=== PATIENT | male | born 1940 | race Caucasian/White ===

== ENCOUNTER 2018-10-30 12:57 | Observation (INO) | payer OTHER ==
[2018-10-30] MEDS ORDERED: ONDANSETRON 4 MG/2 ML VIAL ONE (13:43)
[2018-10-30] MEDS ORDERED: FENTANYL CITR 100 MCG/2 ML ONE (13:43)
[2018-10-30 13:57] LABS: Protime INR 1.07
[2018-10-30 13:58] LABS: Absolute Lymphocytes (CBC) 2.9 K/uL (0.7-4.9); Absolute Monocytes 0.9 K/uL (0.1-1.3); Absolute Neutrophil 6.1 K/uL (1.8-8.0); Basophils % 0.8 % (0-1.3); Eosinophils % 4.4 % (0-4.4); Hematocrit 48.3 % (39.6-49.0); Lymphocytes % 27.4 % (15.3-44.8); MCH 31.6 pg (27.0-35.0); RBC Red Blood Cell Count 5.55 M/uL (4.33-5.43)
[2018-10-30 14:02] LABS: Potassium 3.3 mmol/L (3.5-5.1)
--- NOTE | 2018-10-30 14:12 | RAD REPORT ---
EXAM DESCRIPTION: CT - Head C Spine Cap Wo Con - 10/30/2018 1:54 pm CLINICAL HISTORY: Trauma, head and neck injury. Chest, abdomen and pelvis pain. fall COMPARISON: HEAD BRAIN W O CONTRAST dated 07/18/2009; RP EXAM COMPLETE dated 05/18/2015 TECHNIQUE: CT head without contrast. CT cervical spine without contrast with coronal and sagittal reformatted images. CT chest, abdomen and pelvis without contrast with coronal and sagittal reformatted images of the spi ne. All CT scans are performed using dose optimization technique as appropriate and may include automated exposure control or mA/KV adjustment according to patient size. FINDINGS: CT HEAD WITHOUT CONTRAST: No intracranial hemorrhage, hydrocephalus or extra-axial fluid collection. Mild generalized brain atr ophy. No areas of brain edema or midline shift. The paranasal sinuses and mastoids are essentially clear. The calvarium is intact. CT CERVICAL SPINE WITHOUT CONTRAST: No fracture or subluxation. Mild lower cervical degenerative changes. The prevertebral soft tissues a re normal in thickness. CT CHEST, ABDOMEN, PELVIS WITHOUT CONTRAST: NOTE: Lack of contrast is a significant limitation in the assessment of trauma related findings. Spec ifically, solid organ, vascular and bowel evaluation is significantly limited. The lungs are clear.Evidence of old right lateral rib fractures which are well-healed. Right clavicul ar hardware also seen. No pneumothorax or pericardial/pleural fluid. 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 No evidence of intra-abdominal visceral injury, free fluid or free air is seen within the above detai led limitations. 10 mm lesion emanates from the cortex of the right kidney anteriorly, incompletely a ssessed due to lack of IV contrast but favored to be benign. Nonemergent follow-up renal sonography c ould be obtained for further characterization if clinically indicated. Appendectomy clips seen. Postsurgical clips are also present in the pelvis. Sigmoid diverticulosis wi thout diverticulitis. Small fat containing left inguinal hernia. Nondisplaced fracture posterior right twelfth rib noted. Nondisplaced fracture right lateral L1 trans verse process also seen. IMPRESSION: Nondisplaced fracture right L1 transverse process and posterior right twelfth rib. Elsew here, no acute trauma related abnormality seen.
[2018-10-30] MEDS ORDERED: MEPERIDINE HCL 25 MG/0.5 ML ONE ×2 (14:41→15:49)
--- NOTE | 2018-10-30 15:35 | ER ---
Nurse's Notes [facility] Name: Jose C Hernandez Age: 78 yrs Sex: Male : 1940 Arrival Date: 10/30/2018 Time: 12:58 Bed 17 Private MD: Andrea Awan Diagnosis: Other slipping, tripping and stumbling and falls;Fracture of one rib, right side;L1 transverse process fracture Presentation: 10/30 13:04 Presenting complaint: Patient states: i fell like 30 mins ago, landed on a corner of an ice chest, and hurt my R flank area, denies hitting head and LOC;. Transition of care: patient was not received from another setting of care. Onset of symptoms was October 30, 2018. Risk Assessment: Do you want to hurt yourself or someone else? Patient reports no desire to harm self or others. Initial Sepsis Screen: Does the patient meet any 2 criteria? No. Patient's initial sepsis screen is negative. Does the patient have a suspected source of infection? No. Patient's initial sepsis screen is negative. Care prior to arrival: None. 13:04 Method Of Arrival: Ambulatory 13:04 Acuity: [place] 3 13:07 Mechanism of Injury: Fall. Trauma event details: Injury occurred in the county of [facility], Injury occurred: at home. Injury occurred: October 30, 2018 Injury occurred at: 13:07. Triage Assessment: 13:11 General: Appears in no apparent distress. uncomfortable, Behavior is cooperative, hj appropriate for age, agitated. Pain: Complains of pain in R flank. Trauma Activation: Not Applicable Physician: ED Physician; Name: ; Notified At: ; Arrived At: Physician: General Surgeon; Name: ; Notified At: ; Arrived At: Physician: Radiology; Name: ; Notified At: ; Arrived At: Physician: Respiratory; Name: ; Notified At: ; Arrived At: Physician: Lab; Name: ; Notified At: ; Arrived At: Historical: - Allergies: 13:15 PENICILLINS (cardiac arrest ); aa5 13:15 Morphine (cardiac arrest ); aa5 - Home Meds: 13:09 metoprolol tartrate 50 mg Oral tab 1 tab 2 times per day [Active]; amlodipine 5 mg tab hj 1 tab once daily [Active]; chlorthalidone 25 mg Oral tab 1 tab once daily [Active]; venlafaxine 225 mg oral tr24 1 tab once daily [Active]; - PMHx: 13:06 Hypertension; Depression; hj 13:15 75% Kidney failure; aa5 - PSHx: 13:06 prostate; Appendectomy; hj - Immunization history:: Adult Immunizations up to date. - Social history:: Smoking status: Patient/guardian denies using tobacco, Patient/guardian denies using alcohol. - Ebola Screening: : Patient negative for fever greater than or equal to 101.5 degrees Fahrenheit, and additional compatible Ebola Virus Disease symptoms Patient denies exposure to infectious person Patient denies travel to an Ebola-affected area in the 21 days before illness onset. Screenin:05 Abuse screen: Denies threats or abuse. Denies injuries from another. Nutritional hj screening: No deficits noted. Tuberculosis screening: No symptoms or risk factors identified. Fall Risk None identified. Assessment: 13:10 General: Appears uncomfortable, Behavior is calm, cooperative. Pain: Complains of pain aa5 in right mid back and right low back Pain does not radiate. Pain currently is 10 out of 10 on a pain scale. Quality of pain is described as sharp, shooting, tender, Pain began post fall Is continuous, Aggravated by increased activity, repositioning. Neuro: Level of Consciousness is awake, alert, obeys commands, Oriented to person, place, time, situation. Cardiovascular: Heart tones S1 S2 present Rhythm is regular. Respiratory: Airway is patent Respiratory effort is even, unlabored, Respiratory pattern is regular, symmetrical, Breath sounds are clear bilaterally. GI: No signs and/or symptoms were reported involving the gastrointestinal system. : No signs and/or symptoms were reported regarding the genitourinary system. EENT: No signs and/or symptoms were reported regarding the EENT system. Derm: Skin is pink, warm \T\ dry. abrasion and redness noted to right mid-back. Musculoskeletal: Range of motion: intact in all extremities. 14:40 Reassessment: Patient is alert, oriented x 3, equal unlabored respirations, skin aa5 warm/dry/pink. Patient states feeling better. 14:40 Pain: Pain currently is 5 out of 10 on a pain scale. aa5 15:19 Reassessment: Dr. White at bedside discussing plan of care. jl7 15:43 Reassessment: Patient and/or family updated on plan of care and expected duration. Pain aa5 level reassessed. Patient is alert, oriented x 3, equal unlabored respirations, skin warm/dry/pink. Pain: Pain currently is 8 out of 10 on a pain scale. 16:30 Reassessment: Patient and/or family updated on plan of care and expected duration. Pain aa5 level reassessed. Patient is alert, oriented x 3, equal unlabored respirations, skin warm/dry/pink. Patient states feeling better. Pain: Pain currently is 5 out of 10 on a pain scale. 17:02 Reassessment: Pt given food tray. aa5 17:02 Reassessment: Patient is alert, oriented x 3, equal unlabored respirations, skin aa5 warm/dry/pink. 17:45 Reassessment: Patient is alert, oriented x 3, equal unlabored respirations, skin aa5 warm/dry/pink. Vital Signs: 13:09 BP 135 / 83; Pulse 87; Resp 18; Temp 97.4(TE); Pulse Ox 100% on R/A; Weight 86.18 kg; hj Height 6 ft. 0 in. (182.88 cm); Pain 10/10; 14:04 BP 131 / 101; Pulse 70; Resp 16 S; Pulse Ox 98% on R/A; Pain 10/10; aa5 14:40 BP 138 / 75; Pulse 60; Resp 16 S; Pulse Ox 95% on R/A; Pain 5/10; aa5 15:42 BP 134 / 83; Pulse 66; Resp 18 S; Pulse Ox 98% on 2 lpm NC; Pain 8/10; aa5 17:00 BP 135 / 85; Pulse 66; Resp 16 S; Temp 98.0(TE); Pulse Ox 97% on 2 lpm NC; Pain 5/10; aa5 13:09 Body Mass Index 25.77 (86.18 kg, 182.88 cm) ED Course: 12:58 Patient arrived in ED. rg4 12:59 Andrea Awan MD is Private Physician. rg4 13:05 Triage completed. 13:07 Arm band placed on left wrist. 13:12 Patient has correct armband on for positive identification. Bed in low position. Call light in reach. Side rails up X 1. 13:15 Amparo Pak, RN is Primary Nurse. aa5 13:19 Jas[facility]ir Ochoa [facility]. cp 13:19 Lionel Roland MD is Attending Physician. cp 13:30 Initial lab(s) drawn, by me, sent to lab. Inserted saline lock: 20 gauge in right aa5 antecubital area, using aseptic technique. Blood collected. 13:52 CT completed. Patient tolerated procedure well. Patient moved to CT via wheelchair. jg6 Patient moved back from CT. 13:54 CT Traumagram (Head C Spine CAP wo con) In Process Unspecified. EDMS 15:33 Sen White DO is Hospitalizing Provider. cp 15:46 No provider procedures requiring assistance completed. aa5 17:45 Patient admitted, IV remains in place. aa5 Administered Medications: 13:40 Drug: fentaNYL (PF) 25 mcg Route: IVP; Site: right antecubital; aa5 14:09 Follow up: Response: No adverse reaction aa5 13:40 Drug: Zofran 4 mg Route: IVP; Site: right antecubital; aa5 14:09 Follow up: Response: No adverse reaction aa5 14:09 Drug: fentaNYL (PF) 25 mcg Route: IVP; Site: right antecubital; aa5 14:25 Follow up: Response: No adverse reaction aa5 14:30 Drug: Demerol 25 mg Route: IVP; Site: right antecubital; aa5 14:40 Follow up: Response: No adverse reaction; Pain is decreased aa5 15:43 Drug: Demerol 25 mg Route: IVP; Site: right antecubital; aa5 15:50 Follow up: Response: No adverse reaction aa5 Outcome: 15:34 Decision to Hospitalize by Provider. cp 17:45 Admitted to Med/surg accompanied by tech, via wheelchair, with oxygen, with chart, aa5 Report called to Stephany 17:45 Condition: stable 17:45 Instructed on the need for admit, Demonstrated understanding of instructions. 18:29 Patient left the ED. aa5 Signatures: Dispatcher [employer] EDMS Amparo Pak RN RN aa5 Derik Chavarria RN RN Jasbir Ochoa PA PA cp Radha Sharif rg4 Tanika Fernando RN RN jl7 Shani Sharif6 Corrections: (The following items were deleted from the chart) 13:11 13:09 Pulse 87bpm; Resp 18bpm; Pulse Ox 100% RA; Temp 97.4F Temporal; 86.18 kg; Height hj 6 ft. 0 in.; BMI: 25.7; Pain 08/27; hj 14: 13:00 General: Appears uncomfortable, Behavior is calm, cooperative, aa aa 13:00 Pain: Complains of pain in right mid back and right low back Pain does not aa5 radiate. Pain currently is 10 out of 10 on a pain scale. Quality of pain is described as sharp, shooting, tender, Pain began post fall Is continuous, Aggravated by increased activity, repositioning, [facility] 13: Neuro: Level of Consciousness is awake, alert, obeys commands, Oriented to aa5 person, place, time, situation, aa : 13:00 Cardiovascular: Heart tones S1 S2 present Rhythm is regular aa5 aa 13:00 Respiratory: Airway is patent Respiratory effort is even, unlabored, Respiratory aa5 pattern is regular, symmetrical, Breath sounds are clear bilaterally. aa 13:00 GI: No signs and/or symptoms were reported involving the gastrointestinal system. aa5 aa 13: : No signs and/or symptoms were reported regarding the genitourinary system. aa5aa5 13:00 EENT: No signs and/or symptoms were reported regarding the EENT system. aa5 aa 13: Derm: Skin is pink, warm \T\ dry. abrasion and redness noted to right mid-back aa aa 13:00 Musculoskeletal: Range of motion: intact in all extremities, [place] [id number] 13:06 Allergies: PENICILLINS; [facility] 14 13:06 Allergies: Morphine; [facility] 16:00 13:04 Acuity: [place] 4 [facility]
--- NOTE | 2018-10-30 15:35 | EDPHYS ---
Physician Documentation [facility] Name: Jose C Hernandez Age: 78 yrs Sex: Male : 1940 Arrival Date: 10/30/2018 Time: 12:58 Bed 17 Private MD: Andrea Awan ED Physician Lionel Roland HPI: 10/30 13:35 This 78 yrs old Male presents to ER via Ambulatory with complaints of Fall cp Injury. 13:35 Details of fall: The patient fell from an upright position, while walking, and struck cp cooler. Onset: The symptoms/episode began/occurred just prior to arrival. Associated injuries: The patient sustained right flank area. Severity of symptoms: in the emergency department the symptoms are actually worse, markedly. Historical: - Allergies: 13:15 PENICILLINS (cardiac arrest ); aa5 13:15 Morphine (cardiac arrest ); aa5 - Home Meds: 13:09 metoprolol tartrate 50 mg Oral tab 1 tab 2 times per day [Active]; amlodipine 5 mg tab hj 1 tab once daily [Active]; chlorthalidone 25 mg Oral tab 1 tab once daily [Active]; venlafaxine 225 mg oral tr24 1 tab once daily [Active]; - PMHx: 13:06 Hypertension; Depression; hj 13:15 75% Kidney failure; aa5 - PSHx: 13:06 prostate; Appendectomy; hj - Immunization history:: Adult Immunizations up to date. - Social history:: Smoking status: Patient/guardian denies using tobacco, Patient/guardian denies using alcohol. - Ebola Screening: : Patient negative for fever greater than or equal to 101.5 degrees Fahrenheit, and additional compatible Ebola Virus Disease symptoms Patient denies exposure to infectious person Patient denies travel to an Ebola-affected area in the 21 days before illness onset. ROS: 13:40 Constitutional: Negative for body aches, chills, fever, poor PO intake. cp 13:40 Eyes: Negative for injury, pain, redness, and discharge. cp 13:40 Neck: Negative for pain with movement, pain at rest, stiffness. 13:40 Respiratory: Negative for cough, shortness of breath, wheezing. 13:40 Abdomen/GI: Negative for vomiting, diarrhea, constipation. 13:40 Back: Positive for flank pain, on the right. 13:40 : Negative for urinary symptoms, testicular pain 13:40 Neuro: Negative for altered mental status, headache, loss of consciousness, syncope, weakness. 13:40 All other systems are negative. Exam: 13:45 Constitutional: The patient appears alert, awake, non-diaphoretic, non-toxic, well cp developed, well nourished, in obvious pain, uncomfortable. 13:45 Head/Face: Normocephalic, atraumatic. cp 13:45 Eyes: Periorbital structures: appear normal, Conjunctiva: normal, no exudate, no injection, Sclera: no appreciated abnormality, Lids and lashes: appear normal, bilaterally. 13:45 ENT: External ear(s): are unremarkable, Ear canal(s): are normal, clear, TM's: bulging, is not appreciated, bilaterally, dullness, bilaterally, erythema, is not appreciated, bilaterally, Nose: is normal, Mouth: Lips: moist, Oral mucosa: moist, Posterior pharynx: is normal, airway is patent, no erythema, no exudate, Voice: is normal. 13:45 Neck: C-spine: vertebral tenderness, is not appreciated, crepitus, is not appreciated. 13:45 Chest/axilla: Inspection: normal, Palpation: is normal, no crepitus, no tenderness. 13:45 Cardiovascular: Rate: normal, Rhythm: regular, Pulses: Pulses are 2+ in right radial artery and left radial artery. Edema: is not appreciated, JVD: is not appreciated. 13:45 Respiratory: the patient does not display signs of respiratory distress, Respirations: shallow respirations, that is mild, Breath sounds: are clear throughout, no decreased breath sounds, no stridor, no wheezing. 13:45 Abdomen/GI: Inspection: abdomen appears normal, Bowel sounds: active, all quadrants, Palpation: soft, in all quadrants, severe abdominal tenderness, in the anterior aspect of right lateral abdomen and posterior aspect of right lateral abdomen, rebound tenderness, is not appreciated, voluntary guarding, is elicited in the anterior aspect of right lateral abdomen and posterior aspect of right lateral abdomen. 13:45 Back: pain, that is severe, of the right mid back and right low back. 13:45 Musculoskeletal/extremity: Exam is negative for decreased range of motion, deformity. 13:45 Skin: cellulitis, is not appreciated, no rash present. 13:45 Neuro: Orientation: to person, place \T\ time. Mentation: is normal, Cerebellar function: is grossly normal, Motor: moves all fours, strength is normal, Sensation: is normal, Gait: is steady. Vital Signs: 13:09 BP 135 / 83; Pulse 87; Resp 18; Temp 97.4(TE); Pulse Ox 100% on R/A; Weight 86.18 kg; hj Height 6 ft. 0 in. (182.88 cm); Pain 10/10; 14:04 BP 131 / 101; Pulse 70; Resp 16 S; Pulse Ox 98% on R/A; Pain 10/10; aa5 14:40 BP 138 / 75; Pulse 60; Resp 16 S; Pulse Ox 95% on R/A; Pain 5/10; aa5 15:42 BP 134 / 83; Pulse 66; Resp 18 S; Pulse Ox 98% on 2 lpm NC; Pain 8/10; aa5 17:00 BP 135 / 85; Pulse 66; Resp 16 S; Temp 98.0(TE); Pulse Ox 97% on 2 lpm NC; Pain 5/10; aa5 13:09 Body Mass Index 25.77 (86.18 kg, 182.88 cm) hj MDM: 13:19 Patient medically screened. cp 14:00 Differential diagnosis: closed head injury, contusion, fracture, laceration, multiple cp trauma. 15:15 Data reviewed: vital signs, nurses notes, lab test result(s), EKG, radiologic studies, cp CT scan. 15:15 Test interpretation: by ED physician or midlevel provider: ECG. Counseling: I had a cp detailed discussion with the patient and/or guardian regarding: the historical points, exam findings, and any diagnostic results supporting the discharge/admit diagnosis, lab results, radiology results. Response to treatment: the patient's symptoms have mildly improved after treatment. 15:25 ED course: VSS. Patient continues to have significant pain due to injuries. Will admit cp for pain control. 15:25 Physician consultation: Sen White DO was called at 15:20, was contacted at 15:20, cp regarding admission, patient's condition, and will see patient in ED, shortly. 10/30 13:26 Order name: Basic Metabolic Panel; Complete Time: 14:04 cp 10/30 14:04 Interpretation: Normal except: K 3.3; GLUC 112; BUN 19; CRE 2.00; GFR 33. 10/30 13:26 Order name: CBC with Diff; Complete Time: 14:04 10/30 14:05 Interpretation: Normal except: RBC 5.55; MCHC 36.3. 10/30 13:26 Order name: Creatinine for Radiology; Complete Time: 14:04 10/30 14:09 Interpretation: Abnormal: CRE 2.00; GFR 33. 10/30 13:26 Order name: Type And Screen 10/30 13:26 Order name: PT-INR; Complete Time: 14:04 10/30 15:09 Interpretation: Normal except: PT 12.6. 10/30 13:26 Order name: Ptt, Activated; Complete Time: 14:04 10/30 13:26 Order name: CT Traumagram (Head C Spine CAP wo con); Complete Time: 14:15 10/30 14:17 Interpretation: Report reviewed. 10/30 13:30 Order name: Urine Microscopic Only 10/30 14:50 Order name: INCENTIVE SPIROMETRY 10/30 16:22 Order name: Urine Dipstick--Ancillary (enter results) 10/30 17:19 Order name: ABO/RH no charge EDIN 10/30 13:26 Order name: Labs collected and sent; Complete Time: 13:39 10/30 13:30 Order name: Urine Dipstick-Ancillary (obtain specimen); Complete Time: 15:53 10/30 16:10 Order name: Diet Renal; Complete Time: 16:10 iw Administered Medications: 13:40 Drug: fentaNYL (PF) 25 mcg Route: IVP; Site: right antecubital; aa5 14:09 Follow up: Response: No adverse reaction aa5 13:40 Drug: Zofran 4 mg Route: IVP; Site: right antecubital; aa5 14:09 Follow up: Response: No adverse reaction aa5 14:09 Drug: fentaNYL (PF) 25 mcg Route: IVP; Site: right antecubital; aa5 14:25 Follow up: Response: No adverse reaction aa5 14:30 Drug: Demerol 25 mg Route: IVP; Site: right antecubital; aa5 14:40 Follow up: Response: No adverse reaction; Pain is decreased aa5 15:43 Drug: Demerol 25 mg Route: IVP; Site: right antecubital; aa5 15:50 Follow up: Response: No adverse reaction aa5 Disposition: 10/30/18 15:34 Hospitalization ordered by Sen White for Observation. Preliminary diagnosis are Other slipping, tripping and stumbling and falls, Fracture of one rib, right side, L1 transverse process fracture. - Bed requested for Telemetry/MedSurg (observation). - Status is Observation. aa5 - Condition is Stable. - Problem is new. - Symptoms have improved. UTI on Admission? No Addendum: 11/06/2018 07:51 Co-signature as Attending Physician, Lionel Roland MD I agree with the assessment and k dr plan of care. Signatures: Dispatcher [employer] EDMS Nettie Jaquez Kevin, MD MD [facility] Amparo Pak RN RN aa5 Derik Chavarria RN RN hj Page, Corey, PA PA cp Corrections: (The following items were deleted from the chart) 10/30 14:28 13:06 Allergies: PENICILLINS; aa5 14:28 13:06 Allergies: Morphine; aa5 15:36 15:34 Hospitalization Ordered by Sen White DO for Observation. Preliminary cp diagnosis is Other slipping, tripping and stumbling and falls; Fracture of one rib, right side. Bed requested for Telemetry/MedSurg (observation). Status is Observation. Condition is Stable. Problem is new. Symptoms have improved. UTI on Admission? No. cp 16:20 15:36 10/30/2018 15:34 Hospitalization Ordered by Sen White DO for Observation. bd Preliminary diagnosis is Other slipping, tripping and stumbling and falls; Fracture of one rib, right side; L1 transverse process fracture. Bed requested for Telemetry/MedSurg (observation). Status is Observation. Condition is Stable. Problem is new. Symptoms have improved. UTI on Admission? No. cp 18:29 16:20 10/30/2018 15:34 Hospitalization Ordered by Sen White DO for Observation. aa5 Preliminary diagnosis is Other slipping, tripping and stumbling and falls; Fracture of one rib, right side; L1 transverse process fracture. Bed requested for Telemetry/MedSurg (observation). Status is Observation. Condition is Stable. Problem is new. Symptoms have improved. UTI on Admission? No. bd
--- NOTE | 2018-10-30 15:53 | P.HP ---
Certification for Inpatient Patient admitted to: Observation With expected LOS: <2 Midnights Patient will require the following post-hospital care: Home Health Services Practitioner: I am a practitioner with admitting privileges, knowledge of patient current condition, hospital course, and medical plan of care. Services: Services provided to patient in accordance with Admission requirements found in Title 42 Section 412.3 of the Code of Federal Regulations Patient History Date of Service: 10/30/18 Primary Care Provider: Dr. Awan; Nephrology-Dr. Hurd Reason for admission: Right flank pain History of Present Illness: 78-year-old male presented to the emergency room after a fall and presented with right flank pain. Patient did not lose consciousness. Apparently he hit himself on the side with a cooler. Patient started to have increasing pain severe. He came to the ER for further evaluation. Patient denied any chest pain, shortness of breath, or fatigue. In the ER patient evaluated. CBC unremarkable. Sodium 134, potassium 3.3. BUN of 19, creatinine 2.0 with a GFR 33. Glucose 112. CT showed right L1 transverse process along with a posterior 12th rib fracture. Patient was given pain medication in the emergency room. Patient persisted to have pain. It was not well controlled. Patient was admitted for observation. When I saw the patient the ER, pain was somewhat improved. Patient not able to stand appropriately. Patient admitted for further evaluation and treatment. Allergies morphine Allergy (Severe, Verified 02/19/12 15:55) Anaphylaxis Penicillins Allergy (Severe, Verified 02/19/12 15:54) Anaphylaxis Home medications list reviewed: Yes - Past Medical/Surgical History Diabetic: No -: Hypertension -: Chronic kidney disease, stage III -: Depression -: History of prostate cancer -: Prostate surgery -: Appendectomy -: Bilateral shoulder repair -: Right collarbone repair Psychosocial/ Personal History: Patient lives by himself. He is currently . He has 1 stepchild. - Family History Family History: Reviewed- Non-Contributory - Social History Smoking Status: Never smoker Alcohol use: No CD- Drugs: No Caffeine use: No Place of Residence: Home Review of Systems General: Weakness, As per HPI Eyes: Unremarkable ENT: Unremarkable Respiratory: Unremarkable Cardiovascular: Unremarkable Gastrointestinal: Unremarkable Genitourinary: Unremarkable Musculoskeletal: Back Pain, As per HPI Integumentary: Unremarkable Neurological: Unremarkable Lymphatics: Unremarkable Physical Examination - Physical Exam General: Alert, In no apparent distress, Oriented x3, Cooperative HEENT: Atraumatic, Normocephalic, PERRLA, Mucous membr. moist/pink Neck: Supple Respiratory: Clear to auscultation bilaterally, Normal air movement Cardiovascular: Normal pulses, Regular rate/rhythm Gastrointestinal: Normal bowel sounds, Soft and benign, Non-distended, No tenderness, No masses, No rebound, No guarding Musculoskeletal: Other (Pain to the lumbar region. Pain also noted to the right flank region.) Integumentary: No tenderness/swelling, No erythema, No warmth, No cyanosis Neurological: Normal speech, Normal strength at 5/5 x4 extr, Normal tone, Normal affect - Studies Laboratory Data (last 24 hrs) 10/30/18 13:30: PT 12.6 H, INR 1.07, APTT 28.8 10/30/18 13:30: Creatinine 2.00 H 10/30/18 13:30: WBC 10.4, Hgb 17.5, Hct 48.3, Plt Count 265 10/30/18 13:30: Sodium 136, Potassium 3.3 L, BUN 19 H, Creatinine 2.00 H, Glucose 112 H Assessment and Plan - Plan Impression: Intractable back pain secondary to fall with right L1 transverse process fracture along with posterior right 12th rib fracture Hypertension Chronic renal failure stage 3 Depression Plan: Intractable back pain secondary to fall with right L1 transverse process fracture along with posterior right 12th rib fracture: Patient will be admitted for observation for pain control. Will start with Neurontin 100 mg 1 pill 3 times a day. Will also provide medication for severe pain including tramadol. If severe will provide other medications. Will try to limit IV pain medication. Will physical therapy assess ambulation. Will assess home needs. Patient will likely require home health and physical therapy at discharge. Will continue to monitor and reassess. Will discuss with social service liaison to help with home health and physical therapy set up at discharge. Hypertension: Will continue with his previous medications of metoprolol, Norvasc and chlorthalidone Chronic renal failure stage 3: Overall stable. Patient will need a follow up with nephrology as an outpatient. Depression: Will continue with his medication of Effexor. Discharge Plan: Home Plan to discharge in: 24 Hours - Advance Directives Does patient have a Living Will: No Does patient have a Durable POA for Healthcare: No - Code Status/Comfort Care Code Status Assessed: Yes (Patient full code.) Time Spent Managing Pts Care (In Minutes): 55
[2018-10-30] MEDS ORDERED: HYDROCODONE/APAP 7.5/325 MG TAB PO PRN (18:13)
[2018-10-30] MEDS ORDERED: TRAMADOL HCL 50 MG TAB PO PRN (18:13)
[2018-10-30] MEDS ORDERED: ONDANSETRON 4 MG/2 ML VIAL IV PRN (18:13)
[2018-10-30] MEDS ORDERED: ACETAMINOPHEN 500 MG TAB PO PRN (18:13)
[2018-10-30] MEDS: LIDOCAINE 5% PATCH TOP SCH (18:47)
[2018-10-30 19:03] VITALS: BMI 25.9
[2018-10-30] MEDS: MEPERIDINE HCL 25 MG/0.5 ML IV PRN (19:31)
[2018-10-30] MEDS ORDERED: POTASSIUM 25 MEQ EFFERV TAB PO ONE (20:00)
[2018-10-30] MEDS ORDERED: GABAPENTIN 100 MG CAP PO SCH (21:00)
[2018-10-30 21:11] LABS: Urine Appearance CLEAR; Urine Bilirubin NEGATIVE (NEG); Urine Blood NEGATIVE (NEG); Urine Color YELLOW; Urine Glucose NEGATIVE (NEG); Urine Protein NEGATIVE (NEG); Urine Specific Gravity <=1.005 (1.005-1.030); Urine Urobilinogen 0.2 mg/dL (0.2-1.0); Urine pH 6.5 (5.0-7.0)
[2018-10-30 21:23] LABS: Urine Microscopic Reflex NO UMIC
[2018-10-31] MEDS: MEPERIDINE HCL 25 MG/0.5 ML IV PRN ×2 (00:09→07:30)
[2018-10-31 06:07] LABS: Absolute Lymphocytes (CBC) 2.4 K/uL (0.7-4.9); Absolute Monocytes 1.1 K/uL (0.1-1.3); Absolute Neutrophil 5.4 K/uL (1.8-8.0); Basophils % 0.7 % (0-1.3); Eosinophils % 3.8 % (0-4.4); Hematocrit 43.7 % (39.6-49.0); Lymphocytes % 25.5 % (15.3-44.8); MCH 31.2 pg (27.0-35.0); MCV 88.4 fL (80-100); MPV 9.4 fL (7.6-11.3); Monocytes % 11.9 % (3.3-12.3); RBC Red Blood Cell Count 4.95 M/uL (4.33-5.43)
[2018-10-31 06:38] LABS: Magnesium 2.4 mg/dL (1.8-2.4); Potassium 4.4 mmol/L (3.5-5.1)
[2018-10-31] MEDS ORDERED: INFLUENZA VACCINE (for 3y+) 0.5 ML DOSE IMVAC ONE (07:00)
[2018-10-31] MEDS ORDERED: METOPROLOL TAR 50 MG TAB PO SCH (09:00)
[2018-10-31] MEDS ORDERED: AMLODIPINE 5 MG TAB PO SCH (09:00)
[2018-10-31] MEDS ORDERED: VENLAFAXINE HCL XR 75 MG CAP PO SCH (09:00)
[2018-10-31] MEDS ORDERED: CHLORTHALIDONE 25 MG TAB PO SCH (09:00)
[2018-10-31] MEDS ORDERED: ENOXAPARIN 30 MG/0.3 ML SQ SCH (09:00)
[2018-10-31] MEDS: GABAPENTIN 100 MG CAP PO SCH ×2 (11:03→14:30)
[2018-10-31] MEDS ORDERED: TIZANIDINE 4 MG TABLET PO PRN (12:25)
--- NOTE | 2018-10-31 12:59 | P.DS ---
Admission Date: 10/30/18 Discharge Date: 10/31/18 Primary Care Provider: Dr. Awan; Nephrology-Dr. Hurd Disposition: TRANSFER TO ASSISTED Discharge Condition: GOOD Reason for Admission: Right flank pain Consultations: Physical therapy Procedures: CT scan: No intracranial hemorrhage, hydronephrosis were significant abnormality. No cervical spine fracture or subluxation. Mild lower cervical degenerative changes noted. Lungs clear. Evidence of old right lateral rib fractures which are well-healed noted. Right collarbone hardware seen. 10 mm lesion to the right kidney noted. Nondisplaced fracture posterior right 12th rib noted. Nondisplaced fracture right lateral transverse L1 process fracture noted Impression: Intractable back pain secondary to fall with right L1 lateral transverse process fracture along with posterior right 12th rib fracture Hypertension Chronic renal failure stage 3 Depression Brief History of Present Illness: 78-year-old male presented to the emergency room after a fall and presented with right flank pain. Patient did not lose consciousness. Apparently he hit himself on the side with a cooler. Patient started to have increasing pain severe. He came to the ER for further evaluation. Patient denied any chest pain, shortness of breath, or fatigue. In the ER patient evaluated. CBC unremarkable. Sodium 134, potassium 3.3. BUN of 19, creatinine 2.0 with a GFR 33. Glucose 112. CT showed right L1 transverse process along with a posterior 12th rib fracture. Patient was given pain medication in the emergency room. Patient persisted to have pain. It was not well controlled. Patient was admitted for observation. When I saw the patient the ER, pain was somewhat improved. Patient not able to stand appropriately. Patient admitted for further evaluation and treatment. Hospital Course: The patient suffered a fall which led to intractable back pain. Patient found to have a right lateral L1 transverse fracture with posterior right 12th rib fracture. Patient was admitted for pain control. Patient worked with physical therapy with ambulation. Pain improved. At discharge home health and physical therapy will be arranged. At discharge he will continue with Neurontin 200 mg 3 times a day, lidocaine patch to the area of pain daily, and Zanaflex 4 mg 1 pill twice daily as needed for muscle spasm. A limited supply of pain medication-Tylenol #3 1 pill 3 times a day as needed for pain will be provided. Fall precautions in place. Patient to continue with recommendations by physical therapy. Patient will continue with walker at home. Patient plans to stay with his friend for support. Recommendation is for the patient to follow up PCP on Saturday to follow up this hospitalization. I will recommend consultation with pain management for better pain control early next week. Patient has hypertension. This remained stable. Patient will continue with Norvasc 5 mg daily, chlorthalidone 25 mg daily, and metoprolol 50 mg 1 pill daily. Recommendation is to maintain blood pressures less 150/80. Further adjustment can be done by his PCP. Patient has depression. Patient will continue with Effexor daily. Patient with underlying chronic renal disease stage 3. Recommendation is for the patient to follow up with nephrology in 1-2 weeks to monitor his progress. Recommendation to check renal ultrasound as an outpatient to further evaluate. Recommend on no use of nonsteroidal anti-inflammatories due to his hypertension and chronic renal disease. Vital Signs/Physical Exam: Temp Pulse Resp BP Pulse Ox 97.1 F 58 16 119/75 92 10/31/18 08:00 10/31/18 08:00 10/31/18 08:00 10/31/18 08:00 10/31/18 08:00 General: Alert, In no apparent distress, Oriented x3, Cooperative HEENT: Atraumatic, Mucous membr. moist/pink Neck: Supple Respiratory: Clear to auscultation bilaterally, Normal air movement Cardiovascular: Normal pulses, Regular rate/rhythm Gastrointestinal: Normal bowel sounds, Soft and benign, Non-distended, No tenderness, No masses, No rebound, No guarding Musculoskeletal: No warmth, Tenderness (Pain to the right flank region and lower rib cage area) Integumentary: No erythema, No warmth, No cyanosis Neurological: Normal speech, Normal strength at 5/5 x4 extr, Normal tone, Normal affect Laboratory Data at Discharge: WBC 9.3 K/uL (4.3-10.9) 10/31/18 05:27 Hgb 15.4 g/dL (13.6-17.9) 10/31/18 05:27 Hct 43.7 % (39.6-49.0) 10/31/18 05:27 Plt Count 166 K/uL (152-406) D 10/31/18 05:27 PT 12.6 SECONDS (9.5-12.5) H 10/30/18 13:30 INR 1.07 10/30/18 13:30 APTT 28.8 SECONDS (24.3-36.9) 10/30/18 13:30 Sodium 138 mmol/L (136-145) 10/31/18 05:27 Potassium 4.4 mmol/L (3.5-5.1) 10/31/18 05:27 BUN 19 mg/dL (7-18) H 10/31/18 05:27 Creatinine 1.80 mg/dL (0.55-1.3) H 10/31/18 05:27 Glucose 98 mg/dL (74-106) 10/31/18 05:27 Magnesium 2.4 mg/dL (1.8-2.4) 10/31/18 05:27 Home Medications: Amlodipine [Norvasc*] 1 tab PO DAILY 10/30/18 Chlorthalidone [Hygroton 25mg Tab*] 1 tab PO DAILY 10/30/18 Metoprolol Tartrate [Lopressor] 1 tab PO DAILY 10/30/18 Venlafaxine HCl [Venlafaxine HCl ER] 1 tab PO DAILY 10/30/18 Gabapentin [Neurontin] 200 mg PO TID #90 cap 10/31/18 Lidocaine 5% Patch [Lidoderm 5% Patch*] 1 patch TOP 2100 #30 patch 10/31/18 Tizanidine [Zanaflex*] 4 mg PO BID PRN #15 tab 10/31/18 New Medications: Gabapentin [Neurontin] 200 mg PO TID #90 cap Lidocaine 5% Patch [Lidoderm 5% Patch*] 1 patch TOP 2100 #30 patch Tizanidine [Zanaflex*] 4 mg PO BID PRN #15 tab PRN Reason: Muscle Spasms Patient Discharge Instructions: 1. Patient to follow up with PCP on Saturday. 2. The patient suffered a fall which led to intractable back pain. Patient found to have a right lateral L1 transverse fracture with posterior right 12th rib fracture. Patient was admitted for pain control. Patient worked with physical therapy with ambulation. Pain improved. At discharge home health and physical therapy will be arranged. At discharge he will continue with Neurontin 200 mg 3 times a day, lidocaine patch to the area of pain daily, and Zanaflex 4 mg 1 pill twice daily as needed for muscle spasm. A limited supply of pain medication-Tylenol #3 1 pill 3 times a day as needed for pain will be provided. Fall precautions in place. Patient to continue with recommendations by physical therapy. Patient will continue with walker at home. Patient plans to stay with his friend for support. Recommendation is for the patient to follow up PCP on Saturday to follow up this hospitalization. I will recommend consultation with pain management for better pain control early next week. 3. Patient has hypertension. This remained stable. Patient will continue with Norvasc 5 mg daily, chlorthalidone 25 mg daily, and metoprolol 50 mg 1 pill daily. Recommendation is to maintain blood pressures less 150/80. Further adjustment can be done by his PCP. 4. Patient has depression. Patient will continue with Effexor daily. 5. Patient with underlying chronic renal disease stage 3. Recommendation is for the patient to follow up with nephrology in 1-2 weeks to monitor his progress. Recommendation to check renal ultrasound as an outpatient to further evaluate. Recommend on no use of nonsteroidal anti- inflammatories due to his hypertension and chronic renal disease. Diet: Renal Activity: Fall precautions Time spent managing pt's care (in minutes): 55
[2018-10-31 14:48] VITALS: O2SAT 93
[2018-10-31 17:26] VITALS: BP 97/59; TEMP 97.2
[2018-10-31] MEDS: LIDOCAINE 5% PATCH TOP SCH (18:53)
[2018-11-01] MEDS ORDERED: HOME MED 1 EA UNK (Venlafaxine Hcl [Venlafaxine Hcl Er] 1 TAB) PO SCH (09:00)
== END 2018-10-31 20:36 | disposition home health service (06) ==
LOC: ER 12:57 → ERHOLD 15:35 → 2ND 17:43
PROVIDERS: ADMIT Family Medicine; ATTEND Family Medicine
DX: S32.019A Unspecified fracture of first lumbar vertebra, initial encounter for closed fracture (principal); S22.31XA Fracture of one rib, right side, initial encounter for closed fracture; I12.9 Hypertensive chronic kidney disease with stage 1 through stage 4 chronic kidney disease, or unspecified chronic kidney disease; N18.3 Chronic kidney disease, stage 3 (moderate); F32.9 Major depressive disorder, single episode, unspecified; W01.198A Fall on same level from slipping, tripping and stumbling with subsequent striking against other object, initial encounter; Y92.009 Unspecified place in unspecified non-institutional (private) residence as the place of occurrence of the external cause; Z88.0 Allergy status to penicillin; Z23 Encounter for immunization
CPT/HCPCS: 36415; 70450; 71250; 72125; 80048; 81003; 83735; 85025; 85610; 85730; 86850; 86900; 86901; 96374; 96375; 97116; 97163; 99285; G0008; G0378; J1650; J2175; J2405; J3010; Q2035

== ENCOUNTER 2019-04-13 14:17 | Emergency (ER) | payer OTHER ==
[2019-04-13] MEDS ORDERED: TETANUS & DIPHTHERIA TOX,ADULT 0.5 ML VIAL ONE (15:52)
--- NOTE | 2019-04-13 16:50 | RAD REPORT ---
EXAM DESCRIPTION: RAD - Foot Right 3 View - 04/13/2019 3:54 pm CLINICAL HISTORY: Right foot pain and swelling, puncture wound COMPARISON: May 2008 FINDINGS: No fracture, dislocation or periosteal reaction. No acute or destructive bone process. Sma ll spurs are present at the plantar and Achilles tendon attachments minimally enlarged from 2007. No air or foreign body in the soft tissues. IMPRESSION: Negative right foot examination for acute finding. No suspicious change from prior imaging.
[2019-04-13 17:14] LABS: Absolute Neutrophil 6.1 K/uL (1.8-8.0); Basophils % 0.8 % (0-1.3); Eosinophils % 2.6 % (0-4.4); Hematocrit 46.5 % (39.6-49.0); Lymphocytes % 21.6 % (15.3-44.8); MPV 9.5 fL (7.6-11.3); Monocytes % 10.4 % (3.3-12.3); RBC Red Blood Cell Count 5.27 M/uL (4.33-5.43)
[2019-04-13 17:30] LABS: Potassium 3.9 mmol/L (3.5-5.1)
--- NOTE | 2019-04-13 17:38 | ER ---
Nurse's Notes [facility] Name: Jose C Hernandez Age: 78 yrs Sex: Male : 1940 Arrival Date: 04/13/2019 Time: 14:20 Bed 7 Private MD: Andrea Awan Diagnosis: Puncture wound without foreign body of foot-right great toe Presentation: 04/13 14:29 Presenting complaint: Patient states: right foot swollen, redness, hot started today. sv Reports stepping on a tack last week. Transition of care: patient was not received from another setting of care. Onset of symptoms was April 13, 2019. Initial Sepsis Screen: Does the patient meet any 2 criteria? No. Patient's initial sepsis screen is negative. Does the patient have a suspected source of infection? No. Patient's initial sepsis screen is negative. Care prior to arrival: None. 14:29 Method Of Arrival: Ambulatory sv 14:29 Acuity: [place] 3 sv 17:50 Risk Assessment: Do you want to hurt yourself or someone else? Patient reports no bp desire to harm self or others. Triage Assessment: 14:30 General: Appears in no apparent distress. comfortable, Behavior is calm, cooperative, bp appropriate for age. Pain: Complains of pain in right foot. EENT: No deficits noted. Neuro: Level of Consciousness is awake, alert, obeys commands, Oriented to person, place, time, situation, Appropriate for age. Cardiovascular: No deficits noted. Respiratory: Airway is patent Respiratory effort is even, unlabored, Respiratory pattern is regular, symmetrical. GI: No signs and/or symptoms were reported involving the gastrointestinal system. : No signs and/or symptoms were reported regarding the genitourinary system. Derm: No deficits noted. Musculoskeletal: Circulation, motion, and sensation intact. Range of motion: intact in all extremities. Injury Description: Puncture sustained to right foot. Historical: - Allergies: 14:30 Morphine (cardiac arrest); sv 14:30 PENICILLINS (cardiac arrest); sv - PMHx: 14:30 75% Kidney failure; Depression; Hypertension; sv - PSHx: 14:30 prostate; Appendectomy; sv - Immunization history:: Adult Immunizations up to date. - Social history:: Smoking status: Patient/guardian denies using tobacco. - Ebola Screening: : No symptoms or risks identified at this time. Screenin:11 Abuse screen: Denies threats or abuse. Denies injuries from another. Nutritional bp screening: No deficits noted. Tuberculosis screening: No symptoms or risk factors identified. Fall Risk None identified. Assessment: 15:00 General: SEE TRIAGE NOTE. bp 17:00 General: ALL CURRENT ORDERS COMPLETED, RESULTS PENDING. bp 17:49 Reassessment: PT D/C HOME AMBULATORY, DX WITH PUNCTURE WOUND OF FOOT. bp Vital Signs: 14:30 BP 141 / 84; Pulse 51; Resp 18; Temp 98.1; Pulse Ox 100% ; Weight 88.9 kg; Height 6 ft. sv 0 in. (182.88 cm); Pain 0/10; 17:00 BP 136 / 84; Pulse 55; Resp 14; Pulse Ox 100% ; bp 17:49 BP 147 / 81; Pulse 50; Resp 16; Temp 98.1; Pulse Ox 97% ; bp 14:30 Body Mass Index 26.58 (88.90 kg, 182.88 cm) sv ED Course: 14:20 Patient arrived in ED. ag5 14:20 Andrea Awan MD is Private Physician. ag5 14:30 Triage completed. sv 14:31 Arm band placed on. sv 15:14 Andrea Johnson RN is Primary Nurse. bp 15:15 Jasbir Ochoa PA is PHCP. cp 15:15 Jasbir Andrews MD is Attending Physician. cp 15:50 X-ray completed. Portable x-ray completed in exam room. Patient tolerated procedure tm4 well. 15:54 XRAY Foot RIGHT 3 View In Process Unspecified. EDMS 17:05 Inserted saline lock: 20 gauge in right antecubital area, using aseptic technique. bp 17:11 Patient has correct armband on for positive identification. Bed in low position. Call bp light in reach. Side rails up X2. 17:50 No provider procedures requiring assistance completed. IV discontinued, intact, bp bleeding controlled, No redness/swelling at site. Pressure dressing applied. 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 Exp: bp 01/15/2021. Lot #: [id number]. } Route: IM; Site: right deltoid; 15:40 Follow up: Response: No adverse reaction bp Outcome: 17:38 Discharge ordered by . cp 17:50 Discharged to home ambulatory. bp 17:50 Condition: stable 17:50 Discharge instructions given to patient, Instructed on discharge instructions, follow up and referral plans. medication usage, Demonstrated understanding of instructions, follow-up care, medications. 17:51 Patient left the ED. bp Signatures: Dispatcher [employer] EDSharmaine May RN RN sv Aurora Chambers tm4 Jasbir Ochoa PA PA cp Peltier, Brian, RN RN Claudia Edmond ag5 Corrections: (The following items were deleted from the chart) 14:31 14:30 BP 141 / 84; Pulse 49bpm; Resp 18bpm; Pulse Ox 100%; 88.9 kg; Height 6 ft. 0 in.; sv BMI: 26.5; Pain 0/10; sv
--- NOTE | 2019-04-13 17:38 | EDPHYS ---
Physician Documentation [facility] Name: Jose C Hernandez Age: 78 yrs Sex: Male : 1940 Arrival Date: 04/13/2019 Time: 14:20 Bed 7 Private MD: Andrea Awan ED Physician Jasbir Andrews HPI: 04/13 15:25 This 78 yrs old Male presents to ER via Ambulatory with complaints of Foot cp Injury. 15:25 The patient presents with a puncture wound, by a tack. The complaints affect the cp plantar surface of right great toe. 15:25 Context: the patient can fully bear weight, the patient is able to ambulate, while cp wearing shoe. Onset: The symptoms/episode began/occurred 3 day(s) ago. Associated signs and symptoms: Pertinent negatives: calf tenderness, fever. Historical: - Allergies: 14:30 Morphine (cardiac arrest); sv 14:30 PENICILLINS (cardiac arrest); sv - PMHx: 14:30 75% Kidney failure; Depression; Hypertension; sv - PSHx: 14:30 prostate; Appendectomy; sv - Immunization history:: Adult Immunizations up to date. - Social history:: Smoking status: Patient/guardian denies using tobacco. - Ebola Screening: : No symptoms or risks identified at this time. ROS: 15:30 Constitutional: Negative for body aches, chills, fever, poor PO intake. cp 15:30 Eyes: Negative for injury, pain, redness, and discharge. cp 15:30 ENT: Negative for drainage from ear(s), ear pain, difficulty swallowing, difficulty handling secretions. 15:30 Cardiovascular: Negative for chest pain, edema. 15:30 Respiratory: Negative for cough, shortness of breath, wheezing. 15:30 Abdomen/GI: Negative for abdominal pain, nausea, vomiting, and diarrhea. 15:30 Skin: Positive for of the plantar surface of right great toe, puncture wound. 15:30 All other systems are negative. Exam: 15:45 Constitutional: The patient appears in no acute distress, alert, awake, non-toxic, well cp developed, well nourished. 15:45 Head/Face: Normocephalic, atraumatic. cp 15:45 Eyes: Periorbital structures: appear normal, Conjunctiva: normal, no exudate, no injection, Lids and lashes: appear normal, bilaterally. 15:45 ENT: External ear(s): are unremarkable, Nose: is normal, Mouth: is normal. 15:45 Chest/axilla: Inspection: normal. 15:45 Cardiovascular: Rate: bradycardic, Edema: is not appreciated. 15:45 Respiratory: the patient does not display signs of respiratory distress, Respirations: normal, no use of accessory muscles, no retractions. 15:45 Abdomen/GI: Inspection: abdomen appears normal. 15:45 Skin: injury, that can be described as no foreign body, without bleeding, mild erythema, mild swelling, marked tenderness, puncture(s), that are superficial, of the plantar surface of right great toe. Vital Signs: 14:30 BP 141 / 84; Pulse 51; Resp 18; Temp 98.1; Pulse Ox 100% ; Weight 88.9 kg; Height 6 ft. sv 0 in. (182.88 cm); Pain 0/10; 17:00 BP 136 / 84; Pulse 55; Resp 14; Pulse Ox 100% ; bp 17:49 BP 147 / 81; Pulse 50; Resp 16; Temp 98.1; Pulse Ox 97% ; bp 14:30 Body Mass Index 26.58 (88.90 kg, 182.88 cm) sv MDM: 15:16 Patient medically screened. cp 16:35 Differential diagnosis: fracture, foreign body, cellulitis. cp 17:37 Data reviewed: vital signs, nurses notes, lab test result(s), radiologic studies, plain cp films. 17:37 Test interpretation: by ED physician or midlevel provider: plain radiologic studies. cp Counseling: I had a detailed discussion with the patient and/or guardian regarding: the historical points, exam findings, and any diagnostic results supporting the discharge/admit diagnosis, lab results, radiology results, the need for outpatient follow up, a family practitioner, to return to the emergency department if symptoms worsen or persist or if there are any questions or concerns that arise at home. Response to treatment: the patient's symptoms have mildly improved after treatment, and as a result, I will discharge patient. Special discussion: I discussed in detail with the patient the higher chance of wound infection based on his presenting history. 04/13 15:44 [place] [facility] [place] Complete Time: 17:37 cp 04/13 17:36 Interpretation: Normal except: BUN 21; CRE 1.90; GFR 35. cp 04/13 15:44 Order name: CBC with Diff; Complete Time: 17:28 cp 04/13 17:28 Interpretation: Reviewed. cp 04/13 15:21 Order name: XRAY Foot RIGHT 3 View; Complete Time: 16:52 cp 04/13 16:51 Interpretation: Report reviewed. 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 Exp: bp 01/15/2021. Lot #: [id number]. } Route: IM; Site: right deltoid; 15:40 Follow up: Response: No adverse reaction bp Disposition: 04/13/19 17:38 Discharged to Home. Impression: Puncture wound without foreign body of foot - right great toe. - Condition is Stable. - Discharge Instructions: Puncture Wound. - Prescriptions for Levaquin 250 mg Oral Tablet - take 1 tablet by ORAL route once daily for 7 days take 2 tablest day 1, then 1 tablet daily for next 6 days; 8 tablet. - Medication Reconciliation Form, Thank You Letter, Antibiotic Education, Prescription Opioid Use form. - Follow up: Private Physician; When: 2 - 3 days; Reason: Wound Recheck. - Problem is new. - Symptoms have improved. Addendum: 04/15/2019 07:05 Co-signature as Attending Physician, Jasbir Andrews MD I agree with the assessment and c reid plan of care. Signatures: Dispatcher [employer] Sharmaine Baltazar RN RN sv Anderson, Corey, MD MD cha Page, Corey PA PA cp Andrea Johnson RN RN bp Corrections: (The following items were deleted from the chart) 04/13 17:51 17:38 04/13/2019 17:38 Discharged to Home. Impression: Puncture wound without foreign bp body of foot - right great toe. Condition is Stable. Forms are Medication Reconciliation Form, Thank You Letter, Antibiotic Education, Prescription Opioid Use. Follow up: Private Physician; When: 2 - 3 days; Reason: Wound Recheck. Problem is new. Symptoms have improved. cp
[2019-04-13 19:07] VITALS: TEMP 98.1
[2019-04-13 19:10] VITALS: BP 147/81; O2SAT 97
== END 2019-04-13 17:51 | disposition home or self-care (01) ==
LOC: ER 14:17
DX: S91.131A Puncture wound without foreign body of right great toe without damage to nail, initial encounter (principal); I10 Essential (primary) hypertension; Z23 Encounter for immunization; Z88.0 Allergy status to penicillin; Z88.5 Allergy status to narcotic agent
CPT/HCPCS: 36415; 80048; 85025; 90471; 90714; 99283

== ENCOUNTER 2019-10-05 10:51 | Day surgery (SDC) | payer OTHER ==
--- NOTE | 2019-09-24 14:35 | RAD REPORT ---
EXAM DESCRIPTION: RAD - Chest Pa And Lat (2 Views) - 09/24/2019 2:29 pm CLINICAL HISTORY: preop Chest pain. COMPARISON: CHEST SINGLE VIEW dated 12/13/2009; CHEST SINGLE VIEW dated 07/18/2009; CHEST SINGLE VIEW dated 07/08/2009; CHEST SINGLE VIEW dated 07/01/2009 FINDINGS: The lungs are clear. The heart is normal in size. Hardware plate is present in the right c lavicle. Several old right posterolateral rib fracture seen. IMPRESSION: No acute or concerning finding suspected.
[2019-09-24 16:20] LABS: Potassium 4.1 mmol/L (3.5-5.1)
[2019-09-24 16:47] LABS: Absolute Lymphocytes (CBC) 2.1 K/uL (0.7-4.9); Basophils % 0.8 % (0-1.3); Hematocrit 49.5 % (39.6-49.0); Lymphocytes % 24.4 % (15.3-44.8); MPV 9.7 fL (7.6-11.3); RBC Red Blood Cell Count 5.52 M/uL (4.33-5.43)
--- NOTE | 2019-09-24 17:22 | EKG ---
Test Date: 2019-09-24 Test Time: 14:11:36 Lockstitch Tunnel Elastic Operator: CHRISTELLE MEASUREMENT RESULTS: Intervals: Rate: 74 NC: 166 QRSD: 68 QT: 386 QTc: 428 [place]: P: 61 NC: 166 QRS: -7 T: 43 INTERPRETIVE STATEMENTS: Sinus rhythm with premature atrial complexes Otherwise normal ECG Compared to ECG 12/14/2009 09:29:36 Atrial premature complex(es) now present Sinus bradycardia no longer present Electronically Signed On 09-24-19 17:21:27 TRANSMISSION SUPERINTENDENT by Thang Solo
[2019-10-05] MEDS ORDERED: Ringers Lactate 1,000 ML IV ONE (11:19)
[2019-10-05] MEDS ORDERED: FENTANYL CITR 100 MCG/2 ML ONE (11:53)
[2019-10-05] MEDS ORDERED: MIDAZOLAM HCL 2 MG/2 ML INJ ONE (11:53)
[2019-10-05] MEDS ORDERED: PROPOFOL 200 MG/20 ML VIAL IV ONE (11:53)
[2019-10-05] MEDS ORDERED: LIDOCAINE 2% MPF 5 ML VIAL ONE (11:53)
[2019-10-05] MEDS: CIPROFLOXACIN 400mg IV 400 MG/200 ML BAG IV ONE ×2 (12:09→12:10)
[2019-10-05] MEDS ORDERED: KETOROLAC 30 MG/ML INJ ONE (12:34)
--- NOTE | 2019-10-05 12:57 | P.BOP ---
Preoperative diagnosis: upper back hanger subcutaneous mass Postoperative diagnosis: same Primary procedure: Excisional bx of upper back hanger subcutaneous mass 4x3cm Heater Operator: CHRISTAL MONROE (SUPERVISORY LIFEGUARD) Estimated blood loss: <10cc Specimen: mass Findings: mass Anesthesia: General Complications: None Transferred to: Recovery Room Condition: Good
[2019-10-05 13:02] VITALS: O2SAT 99
[2019-10-05 13:09] VITALS: TEMP 97.8
[2019-10-05 13:30] VITALS: BP 118/84
--- NOTE | 2019-10-06 00:59 | OP ---
Date of Procedure: 10/05/2019 Surgeon: Derik Tate MD Security Architect: KRISSY Kaur. Preoperative Diagnosis: Upper barback subcutaneous mass. Postoperative Diagnosis: Upper barback subcutaneous mass. Procedure: Excisional biopsy of upper barback subcutaneous mass 4 x 3 cm. Estimated Blood Loss: Less than 10 mL. Anesthesia: General plus local. Indications: This is the case of a 79-year-old patient with a tender upper back mass, increasing lana n and discomfort. He wants that excised. Benefits, alternatives, and risks fully explained, which i ncluded, but are not limited to infection, bleeding, damage to adjacent structures, anesthesia compli cation, recurrence, MO, and even . He also understands this may not relieve any symptoms. He m ight need more than one surgical intervention. He understood, signed the consent. The area of deborah rn was marked by me and the patient in the holding room. Description Of Procedure: Patient was brought to the operating room, placed in supine position. Ane sthesia was done without complication. Patient was placed in lateral decubitus position with proper protection. Time-out was called. The area was prepped and draped in sterile fashion followed by wed ge incision of the skin since the mass seemed to be attached to the skin even though it was coming fr om the subcutaneous tissue. Incision was carried down to about 2 cm deep right on top of the fascia, does not penetrate the fascia. The mass was excised. It looked like a fatty tumor, although will b e sent to pathologist for verification. The area was irrigated. This was closed in layers with deep layers of 3-0 chromic and then on top 3-0 nylon and sterile dressings on top. Hemostasis and irrigation were done before closure. Also local anesthetic. MARGUERITE/JENNA Voice ID: [id number] Report ID: [id number]
--- NOTE | 2019-10-06 01:10 | DS ---
Date of Discharge: 10/05/2019 Diagnosis: Upper back hoe operator subcutaneous mass. Procedure: Excisional biopsy of upper back hoe operator subcutaneous. Disposition: Home. Activity: As tolerated. No heavy lifting. Followup: Follow up in my office in 1 week. Call for appointment [phone]. Discharge Instructions: Keep the area dry for 48 hours, then may remove the outer dressings and show er. Medications: For medications, see orders. MARGUERITE/JENNA Voice ID: [id number] Report ID: [id number]
== END 2019-10-05 14:25 | disposition home or self-care (01) ==
LOC: OR 10:51
PROVIDERS: ATTEND Surgery
PROC: 0HB6XZZ Excision of Back Skin, External Approach (ICD-10-PCS; principal; 2019-10-05 12:45)
DX: L72.0 Epidermal cyst (principal); N18.9 Chronic kidney disease, unspecified; I25.2 Old myocardial infarction; Z85.51 Personal history of malignant neoplasm of bladder; Z95.5 Presence of coronary angioplasty implant and graft; Z88.0 Allergy status to penicillin; Z88.6 Allergy status to analgesic agent; Z80.9 Family history of malignant neoplasm, unspecified; Z82.49 Family history of ischemic heart disease and other diseases of the circulatory system
CPT/HCPCS: 11404; 93005; 85025; 80048; 36415; 88304; 71046; J2704; J2250; J3010; J7120; J0744; 88305

== ENCOUNTER 2020-11-13 07:46 | Inpatient (IN) | payer OTHER ==
[2020-11-13 08:09] LABS: Basophils % 1.1 % (0-1.3); Hematocrit 47.9 % (39.6-49.0); Lymphocytes % 32.7 % (15.3-44.8); MPV 9.6 fL (7.6-11.3); RBC Red Blood Cell Count 5.42 M/uL (4.33-5.43)
[2020-11-13 08:14] LABS: Protime INR 1.05
[2020-11-13] MEDS ORDERED: NITROGLYCERIN 0.4 MG/TAB SL ONE (08:18)
[2020-11-13] MEDS ORDERED: ASPIRIN 81 MG CHEWABLE TABLET ONE (08:18)
[2020-11-13 08:28] LABS: Albumin 4.4 g/dL (3.4-5.0); Bilirubin Direct 0.1 mg/dL (0-0.2); Magnesium 2.3 mg/dL (1.8-2.4); Potassium 3.3 mmol/L (3.5-5.1); Protein, Total 8.3 g/dL (6.4-8.2); Troponin (Emerg Dept Use Only) 0.02 ng/mL (0.0-0.045)
--- NOTE | 2020-11-13 08:52 | EDPHYS ---
Physician Documentation [facility] Name: Jose C Hernandez Age: 80 yrs Sex: Male : 1940 Arrival Date: 11/13/2020 Time: 07:48 Bed 20 Private MD: ED Physician Renard Qiu HPI: 11/13 08:17 This 80 yrs old Male presents to ER via Ambulatory with complaints of Chest rn Pain. 08:17 The patient or guardian reports chest pain that is located primarily in the substernal rn area. Onset: 30 minute(s) ago. The pain does not radiate. Associated signs and symptoms: Pertinent positives: diaphoresis, nausea, Pertinent negatives: abdominal pain, cough, lightheadedness, palpitations, shortness of breath, syncope, vomiting. The chest pain is described as a heaviness, a pressure, squeezing. Duration: The patient or guardian reports a single episode, that is still ongoing. Modifying factors: The symptoms are alleviated by nothing. the symptoms are aggravated by nothing. Severity of pain: At its worst the pain was moderate in the emergency department the pain has improved. The patient has experienced a previous episode. Reports chest pain that began while walking at store, substernal, no radiation, was 8/10, squeezing, assoc with diaphoresis and nausea, now down to 2 without intervention, similar to previous heart attack with stents x 2 2 years ago. Does not take aspirin or blood thinners. No infectious symptoms. . Historical: - Allergies: 07:58 PENICILLINS (cardiac arrest); bp 07:58 Morphine (cardiac arrest); bp - Home Meds: 07:58 amlodipine 5 mg tab 1 tab once daily [Active]; chlorthalidone 25 mg Oral tab 1 tab once bp daily [Active]; metoprolol tartrate 50 mg Oral tab 1 tab 2 times per day [Active]; venlafaxine 225 mg Oral tr24 1 tab once daily [Active]; - PMHx: 07:58 75% Kidney failure; Depression; Hypertension; Myocardial infarction; bp - Immunization history:: Adult Immunizations up to date. - Social history:: Smoking status: Patient denies any tobacco usage or history of. - Family history:: not pertinent. - Hospitalizations: : No recent hospitalization is reported. ROS: 08:17 Constitutional: Negative for fever, chills, and weight loss, Eyes: Negative for injury, rn pain, redness, and discharge, Neck: Negative for injury, pain, and swelling, Cardiovascular: Negative for palpitations, and edema, Respiratory: Negative for shortness of breath, cough, wheezing, and pleuritic chest pain, Abdomen/GI: Negative for abdominal pain, vomiting, diarrhea, and constipation, Back: Negative for injury and pain, : Negative for injury, bleeding, discharge, and swelling, MS/Extremity: Negative for injury and deformity, Skin: Negative for injury, rash, and discoloration, Neuro: Negative for headache, weakness, numbness, tingling, and seizure. Exam: 08:00 ECG was reviewed by the Attending Physician. rn 08:17 Constitutional: This is a well developed, well nourished patient who is awake, alert, rn seems anxious and uncomfortable Head/Face: Normocephalic, atraumatic. Neck: Trachea midline, no masses palpated Cardiovascular: Regular rate irregular rhythm. No pulse deficits. Respiratory: No increased work of breathing, no retractions or nasal flaring. Abdomen/GI: soft, non-tender Skin: Warm, dry MS/ Extremity: Pulses equal, no cyanosis. Neuro: Awake and alert, GCS 15, oriented to person, place, time, and situation. Cranial nerves II-XII grossly intact. Motor strength 5/5 in all extremities. Sensory grossly intact. Cerebellar exam normal. Vital Signs: 07:56 BP 190 / 127; Pulse 104; Resp 16; Temp 98; Pulse Ox 100% ; Weight 86.18 kg; bp 09:00 BP 163 / 79; Pulse 80; Resp 17; Pulse Ox 97% ; bp 10:00 BP 154 / 87; Pulse 78; Resp 13; Pulse Ox 98% ; bp 11:00 BP 161 / 89; Pulse 61; Resp 16; Pulse Ox 98% ; bp 12:00 BP 149 / 89; Pulse 62; Resp 23; Pulse Ox 100% ; zb MDM: 07:52 Patient medically screened. rn 08:41 ED course: BP improved 137/92, pain resolved after aspirin/nitro. . rn 08:50 Differential diagnosis: abnormal EKG, acute myocardial infarction, acute pericarditis, rn coronary artery disease esophagitis, gastritis, gastroesophageal reflux disease (GERD), pleurisy, pneumothorax, stable angina, unstable angina. The patient was given aspirin in the Emergency Department. Data reviewed: vital signs, nurses notes, lab test result(s), EKG, radiologic studies, plain films, and as a result, I will admit patient. Counseling: I had a detailed discussion with the patient and/or guardian regarding: the historical points, exam findings, and any diagnostic results supporting the discharge/admit diagnosis, lab results, radiology results, the need for further work-up and treatment in the hospital. Response to treatment: the patient's symptoms have resolved after treatment, and as a result, I will admit patient. Admission orders: after a detailed discussion of the patient's condition and case, the admit orders are written by me. 11/13 07:55 Order name: Basic Metabolic Panel; Complete Time: 08:41 bp 11/13 07:55 Order name: CBC with Diff; Complete Time: 08:41 bp 11/13 07:55 Order name: LFT's; Complete Time: 08:41 bp 11/13 07:55 Order name: Magnesium; Complete Time: 08:41 bp 11/13 07:55 Order name: NT PRO-BNP; Complete Time: 08:41 bp 11/13 07:55 Order name: PT-INR; Complete Time: 08:41 bp 11/13 07:55 Order name: Troponin (emerg Dept Use Only); Complete Time: 08:41 bp 11/13 07:55 Order name: XRAY Chest (1 view); Complete Time: 08:56 bp 11/13 08:59 Order name: Basic Metabolic Panel EDGA 11/13 08:59 Order name: CBC with Automated Diff EDGA 11/13 08:59 Order name: Lipid Profile EDMS 11/13 08:59 Order name: Lipid Profile EDMS 11/13 17:57 Order name: PTT, Activated Partial Thromb EDMS 11/13 18:39 Order name: Protime (+INR) EDMS 11/13 07:55 Order name: EKG; Complete Time: 07:56 bp 11/13 07:55 Order name: Cardiac monitoring; Complete Time: 07:55 bp 11/13 07:55 Order name: EKG - Nurse/Tech; Complete Time: 07:55 bp 11/13 07:55 Order name: IV Saline Lock; Complete Time: 07:55 bp 11/13 07:55 Order name: Labs collected and sent; Complete Time: 07:55 bp 11/13 07:55 Order name: O2 Per Protocol; Complete Time: 07:55 bp 11/13 07:55 Order name: O2 Sat Monitoring; Complete Time: 07:55 bp 11/13 08:59 Order name: CONS Physician Consult EDMS EC:00 Rate is 98 beats/min. Rhythm is irregular. Left axis deviation noted. QRS is positive rn in lead I and negative in lead aVF. SC interval is normal. QRS interval is normal. QT interval is normal. No Q waves. T waves are Normal. ST Segment is depressed in leads V4, V5, V6. Clinical impression: NSR w/ Non-specific ST/T Changes. Interpreted by me. Reviewed by me. Administered Medications: 08:07 Drug: Aspirin Chewable Tablet 324 mg Route: PO; iw 10:00 Follow up: Response: No adverse reaction bp 08:07 Drug: Nitroglycerin 0.4 mg Route: Sublingual; iw 10:00 Follow up: Response: Pain is decreased bp 09:10 Drug: Metoprolol TARTRATE (Lopressor) 50 mg Route: PO; bp 10:01 Follow up: Response: No adverse reaction bp Disposition: 11/13/20 08:51 Hospitalization ordered by Dwight Henley for Observation. Preliminary diagnosis is Chest pain, unspecified. - Bed requested for Telemetry/MedSurg (observation). - Status is Observation. ll2 - Condition is Stable. - Problem is new. - Symptoms have improved. Signatures: Dispatcher [employer] EDGA Kathia Tang RN RN Renard Qiu MD MD rn Martinez, Eric em1 Andrea Johnson RN RN bp Luz Hopper, RN RN ll2 Corrections: (The following items were deleted from the chart) 13:29 08:51 Hospitalization Ordered by Dwight Henley MD for Observation. Preliminary bp diagnosis is Chest pain, unspecified. Bed requested for Telemetry/MedSurg (observation). Status is Observation. Condition is Stable. Problem is new. Symptoms have improved. rn 18:34 13:29 11/13/2020 08:51 Hospitalization Ordered by Dwight Henley MD for Observation. em1 Preliminary diagnosis is Chest pain, unspecified. Bed requested for [facility] ER HOLD. Status is Observation. Condition is Stable. Problem is new. Symptoms have improved. bp 19:53 18:34 11/13/2020 08:51 Hospitalization Ordered by Dwight Henley MD for Observation. ll2 Preliminary diagnosis is Chest pain, unspecified. Bed requested for Telemetry/MedSurg (observation). Status is Observation. Condition is Stable. Problem is new. Symptoms have improved. em1
--- NOTE | 2020-11-13 08:52 | ER ---
Nurse's Notes [facility] Name: Jose C Hernandez Age: 80 yrs Sex: Male : 1940 Arrival Date: 11/13/2020 Time: 07:48 Bed 20 Private MD: Diagnosis: Chest pain, unspecified Presentation: 11/13 07:56 Chief complaint: Patient states: SUBSTERNAL CHEST PAIN x30 MIN. Coronavirus screen: At bp this time, the client does not indicate any symptoms associated with coronavirus-19. Ebola Screen: No symptoms or risks identified at this time. Initial Sepsis Screen: Does the patient meet any 2 criteria? HR > 90 bpm. No. Patient's initial sepsis screen is negative. Does the patient have a suspected source of infection? No. Patient's initial sepsis screen is negative. Risk Assessment: Do you want to hurt yourself or someone else? Patient reports no desire to harm self or others. Onset of symptoms was November 13, 2020 at 07:30. 07:56 Method Of Arrival: Ambulatory bp 07:56 Acuity: [place] 2 bp Triage Assessment: 07:58 General: Appears distressed, uncomfortable, Behavior is cooperative, appropriate for bp age, anxious. Pain: Complains of pain in mid-sternal area. EENT: No deficits noted. Neuro: No deficits noted. Cardiovascular: Rhythm is sinus tachycardia. Respiratory: No deficits noted. GI: No signs and/or symptoms were reported involving the gastrointestinal system. : No signs and/or symptoms were reported regarding the genitourinary system. Derm: No deficits noted. Musculoskeletal: No deficits noted. Historical: - Allergies: 07:58 PENICILLINS (cardiac arrest); bp 07:58 Morphine (cardiac arrest); bp - Home Meds: 07:58 amlodipine 5 mg tab 1 tab once daily [Active]; chlorthalidone 25 mg Oral tab 1 tab once bp daily [Active]; metoprolol tartrate 50 mg Oral tab 1 tab 2 times per day [Active]; venlafaxine 225 mg Oral tr24 1 tab once daily [Active]; - PMHx: 07:58 75% Kidney failure; Depression; Hypertension; Myocardial infarction; bp - Immunization history:: Adult Immunizations up to date. - Social history:: Smoking status: Patient denies any tobacco usage or history of. - Family history:: not pertinent. - Hospitalizations: : No recent hospitalization is reported. Screenin:59 Abuse screen: Denies threats or abuse. Denies injuries from another. Nutritional bp screening: No deficits noted. Tuberculosis screening: No symptoms or risk factors identified. Fall Risk None identified. Assessment: 07:59 General: SEE TRIAGE NOTE. bp 09:00 Reassessment: Patient and/or family updated on plan of care and expected duration. Pain bp level reassessed. Patient is alert, oriented x 3, equal unlabored respirations, skin warm/dry/pink. ADMIT INITIATED Patient states symptoms have improved. 11:00 Reassessment: Patient appears in no apparent distress at this time. Patient and/or bp family updated on plan of care and expected duration. Pain level reassessed. Patient is alert, oriented x 3, equal unlabored respirations, skin warm/dry/pink. ADMIT IN PROCESS. 12:00 Reassessment: Patient appears in no apparent distress at this time. No changes from zb previously documented assessment. Patient and/or family updated on plan of care and expected duration. Pain level reassessed. Patient is alert, oriented x 3, equal unlabored respirations, skin warm/dry/pink. 19:00 Reassessment: Patient and/or family updated on plan of care and expected duration. Pain ll2 level reassessed. Patient is alert, oriented x 3, equal unlabored respirations, skin warm/dry/pink. 19:40 Reassessment: attempted to call report, requested to call back. ll2 19:45 Reassessment: attempted to call report again, informed by Shaun sutton RN was still ll2 getting dayshift report and he would call me gio. 19:52 Reassessment: report given to BROOKS Dunn. ll2 19:53 Pain: Pain began. ll2 19:53 Pain: ll2 Vital Signs: 07:56 BP 190 / 127; Pulse 104; Resp 16; Temp 98; Pulse Ox 100% ; Weight 86.18 kg; bp 09:00 BP 163 / 79; Pulse 80; Resp 17; Pulse Ox 97% ; bp 10:00 BP 154 / 87; Pulse 78; Resp 13; Pulse Ox 98% ; bp 11:00 BP 161 / 89; Pulse 61; Resp 16; Pulse Ox 98% ; bp 12:00 BP 149 / 89; Pulse 62; Resp 23; Pulse Ox 100% ; zb ED Course: 07:45 Inserted saline lock: 20 gauge in right antecubital area, using aseptic technique. bp Blood collected. 07:48 Patient arrived in ED. as 07:52 Renard Qiu MD is Attending Physician. rn 07:54 Andrea Johnson, BROOKS is Primary Nurse. bp 07:57 Triage completed. bp 07:58 Arm band placed on. EKG completed in triage. Results shown to MD. bp 07:59 Patient has correct armband on for positive identification. Bed in low position. Call bp light in reach. Side rails up X2. case monitor on. Pulse ox on. NIBP on. 08:28 XRAY Chest (1 view) In Process Unspecified. EDMS 08:51 Dwight Henley MD is Hospitalizing Provider. rn 13:31 No provider procedures requiring assistance completed. Patient admitted, IV remains in bp place. Patient maintains SpO2 saturation greater than 95% on room air. Administered Medications: 08:07 Drug: Aspirin Chewable Tablet 324 mg Route: PO; iw 10:00 Follow up: Response: No adverse reaction bp 08:07 Drug: Nitroglycerin 0.4 mg Route: Sublingual; iw 10:00 Follow up: Response: Pain is decreased bp 09:10 Drug: Metoprolol TARTRATE (Lopressor) 50 mg Route: PO; bp 10:01 Follow up: Response: No adverse reaction bp Outcome: 08:51 Decision to Hospitalize by Provider. rn 13:32 Admitted to ER Hold. Please see [facility] for further documentation. bp 13:32 Condition: stable 13:32 Instructed on the need for admit. 19:53 Patient left the ED. ll2 Signatures: Dispatcher [employer] EDMS Sena Tate as Kathia Tang RN RN iw Renard Qiu MD MD rn Peltier, Brian, RN RN bp Luz Hopper RN RN ll2 Marilynn Anaya RN RN zb Corrections: (The following items were deleted from the chart) 13:33 07:56 BP 190 / 127; Pulse 104bpm; Resp 16bpm; Pulse Ox 100%; Temp 98F; bp bp
[2020-11-13] MEDS ORDERED: MORPHINE 4 MG/ML SYR IV PRN (08:55)
[2020-11-13] MEDS ORDERED: NITROGLYCERIN 0.4 MG/TAB SL PRN (08:55)
--- NOTE | 2020-11-13 08:56 | RAD REPORT ---
EXAM DESCRIPTION: RAD - Chest Single View - 11/13/2020 8:28 am CLINICAL HISTORY: CHEST PAIN COMPARISON: September 2019 TECHNIQUE: AP portable chest image was obtained 11/13/2020 8:28 am . FINDINGS: No focal mass or consolidation. Lung markings are increased by portable technique and slig htly more shallow inspiratory effort. Heart and vasculature are normal. No measurable pleural effusio n and no pneumothorax. No acute bone findings seen. Multiple old right-sided rib fractures are noted. Compression plate is present at bold clavicle fracture site on the right. No acute aortic findings s uspected. IMPRESSION: No acute cardiopulmonary process. No significant change from comparison study.
[2020-11-13] MEDS ORDERED: ONDANSETRON 4 MG/2 ML VIAL IV PRN (09:20)
[2020-11-13] MEDS: ATORVASTATIN 40 MG TAB PO SCH ×2 (09:20→21:53)
--- NOTE | 2020-11-13 09:24 | P.HP ---
Certification for Inpatient Patient admitted to: Inpatient With expected LOS: >2 Midnights Practitioner: I am a practitioner with admitting privileges, knowledge of patient current condition, hospital course, and medical plan of care. Services: Services provided to patient in accordance with Admission requirements found in Title 42 Section 412.3 of the Code of Federal Regulations Patient History Date of Service: 11/13/20 Reason for admission: Chest pain History of Present Illness: Patient is 80 years of age prior history of coronary artery disease admitted with sudden onset of chest pain he has had stents placed in the past patient was shopping in [employer] started having retrosternal chest pain similar to his prior episodes prior to that he was not having any chest pain he is better pressure is little elevated Allergies morphine Allergy (Severe, Verified 10/05/19 11:49) Anaphylaxis/ cardiac arrest Penicillins Allergy (Severe, Verified 10/05/19 11:49) Anaphylaxis/ cardiac arrest Home Medications: Venlafaxine HCl [Venlafaxine HCl ER] 150 mg PO DAILY 10/30/18 Sulfamethoxazole/Trimethoprim [Bactrim Ds Tablet] 1 each PO BID #10 tablet 10/05/19 - Past Medical/Surgical History Diabetic: No -: Hypertension -: Chronic kidney disease, stage III -: Depression -: History of prostate cancer -: Coronary artery disease -: Prostate surgery -: Appendectomy -: Bilateral shoulder repair -: Right collarbone repair -: Coronary artery stent placement Psychosocial/ Personal History: Patient lives by himself. He is currently . He has 1 stepchild. - Social History Alcohol use: No CD- Drugs: No Caffeine use: No Review of Systems 10-point ROS is otherwise unremarkable Physical Examination - Vital Signs Temperature: 98 F Blood Pressure: 190/127 Pulse: 104 Respirations: 12 Pulse Ox (%): 100 - Physical Exam General: Alert, In no apparent distress, Oriented x3 Neck: Supple Respiratory: Clear to auscultation bilaterally Cardiovascular: No edema, Regular rate/rhythm Gastrointestinal: Normal bowel sounds, Soft and benign Musculoskeletal: No clubbing, No swelling - Studies Laboratory Data (last 24 hrs) 11/13/20 08:00: PT 12.4, INR 1.05 11/13/20 08:00: WBC 12.2 H, Hgb 16.2, Hct 47.9, Plt Count 256 11/13/20 08:00: Sodium 141, Potassium 3.3 L, BUN 20 H, Creatinine 1.79 H, Glucose 92, Magnesium 2.3, Total Bilirubin 1.0, AST 27, ALT 34, Alkaline Phosphatase 62 Assessment and Plan - Problems (Diagnosis) (1) Unstable angina Current Visit: Yes Status: Acute Plan: Patient is 80 years of age with a history of coronary artery disease status post stent placement admitted with unstable angina his as some ST depressions in his lateral leads with chest pain and sudden in onset and plan to anti coagulated he has had an aspirin consult Cardiology beta blockers statins pain relief - Advance Directives Does patient have a Living Will: Yes Does patient have a Durable POA for Healthcare: Yes
[2020-11-13] MEDS ORDERED: HEPARIN/D5W 25,000 UNIT/500 ML BAG IV SCH (10:00)
[2020-11-13] MEDS: METOPROLOL TARTRATE 5 MG/5 ML INJ IV SCH ×3 (10:00→21:54)
[2020-11-13] MEDS ORDERED: METOPROLOL TAR 50 MG TAB ONE (10:13)
[2020-11-13] MEDS ORDERED: METOPROLOL TARTRATE 5 MG/5 ML INJ IV ONE ×2 (13:55→18:25)
--- NOTE | 2020-11-13 14:29 | CON ---
Date of Consultation: 11/13/2020 Reason For Consultation: Chest pain. History Of Present Illness: This is a 80-year-old male with a history of coronary artery disease, ch ronic kidney disease, hypertension, status post cardiac stents placement many years ago, presented wi th chest pain on exertion while doing grocery shopping and then further, he went to the shopping that worse his chest pain, pressure like, radiates to upper extremity, and decided to come to the ER. Af ter management in the emergency room, his chest pain is much better. He has some mild shortness of b reath. No diaphoresis, nausea, vomiting. Past Medical History: As outlined above in the HPI. Medications: Refer to reconciliation sheet for detailed list. Allergies: MORPHINE AND PENICILLIN. Social History: Does not smoke or drink. Does not use any drugs. Review of Systems: All systems were reviewed and they were negative except what mentioned in the HPI. Physical Examination: Vital Signs: Temperature is 98.0, pulse 104, breathing at 12, blood pressure was 190/127 initially, saturating 100% room air. General: Pleasant elderly male, in no distress. Head and Neck: Pupils are equal, reactive to light. Intact eye movements. No JVD. No cervical lym phadenopathy. Neck: Supple. Thyroid is not enlarged. Lungs: Clear to auscultation bilaterally. No rhonchi, rales, or crackles. No accessory muscle use. Heart: Regular rate and rhythm. No extra sounds. Abdomen: Soft, nontender. Bowel sounds positive. No organomegaly. No masses or hernia. No rigidi ty or rebound. Extremities: No edema, clubbing, or cyanosis. Intact pulses. Skin: No rash noted. Neurologic: Alert, awake, oriented x3. No acute focal deficits appreciated. Investigations: Sodium 141, potassium 3.3, creatinine is 1.79. White blood cell count is 4.2, hemog lobin is 16.2, platelet count 256. Assessment And Plan: 1.Unstable angina. EKG with no acute specific abnormalities. Atypical cardiac history and cardiac presentation. Recommend to admit on telemetry, start on IV heparin, load with 325 mg of aspirin and then 81 mg daily, and plan for coronary angiogram tomorrow morning. Discussed the risks, benefits, a nd alternatives with the patient and agreed to the procedure. We will proceed with angiogram as wally e. 2.Chronic kidney disease. Recommend gentle hydration with normal saline at 75 cc/hour, re-evaluate labs tomorrow morning prior to the cardiac catheterization. SR/MODL Voice ID: [id number] Report ID: [id number]
[2020-11-13 18:28] LABS: Protime INR 1.16
[2020-11-13 21:26] VITALS: BMI 26.6
[2020-11-14] MEDS: METOPROLOL TARTRATE 5 MG/5 ML INJ IV SCH ×4 (04:22→23:19)
[2020-11-14] MEDS ORDERED: HEPA 1000U/500MLS 2,000 UNIT/1,000 ML BAG IV ONE (07:38)
[2020-11-14] MEDS ORDERED: HEPARIN 5000 UNIT/ML 1 ML VIAL ONE (07:38)
[2020-11-14] MEDS ORDERED: NITROGLYCERIN 100 MCG/ML SYR (for cath lab use only) IV ONE (07:39)
[2020-11-14] MEDS ORDERED: MIDAZOLAM HCL 2 MG/2 ML INJ ONE ×2 (07:39→08:08)
[2020-11-14] MEDS ORDERED: FENTANYL CITR 100 MCG/2 ML ONE ×2 (07:39→09:03)
[2020-11-14] MEDS ORDERED: HEPARIN 10,000 UNIT/10 ML VIAL IV ONE (07:39)
[2020-11-14] MEDS ORDERED: ATROPINE SULF 1 MG/10 ML SYR IV ONE (07:39)
[2020-11-14] MEDS ORDERED: VERAPAMIL HCL 10 MG/4 ML VIAL IV ONE (07:39)
[2020-11-14] MEDS ORDERED: NITROGLYCERIN/D5W 25 MG/250 ML BTL IV ONE (07:40)
[2020-11-14] MEDS ORDERED: NA CHLORIDE 0.9% 500 ML ONE (07:44)
[2020-11-14] MEDS ORDERED: ACETYLCYST 20% 4 ML VIAL IH ONE (07:56)
[2020-11-14] MEDS ORDERED: LIDOCAINE 1% 20 ML MDV ONE (08:12)
[2020-11-14] MEDS ORDERED: TICAGRELOR 90 MG TABLET PO ONE (08:22)
[2020-11-14] MEDS ORDERED: ASPIRIN 325 MG TAB ONE (08:34)
[2020-11-14] MEDS ORDERED: D5W 250 ML IV ONE (08:40)
[2020-11-14] MEDS ORDERED: NITROPRUSSIDE 50 MG VIAL IV ONE (08:40)
[2020-11-14] MEDS ORDERED: ONDANSETRON 4 MG/2 ML VIAL ONE ×2 (08:45→09:02)
[2020-11-14] MEDS ORDERED: HEPA 1000U/500MLS 1,000 UNIT/500 ML BAG IV ONE (08:51)
--- NOTE | 2020-11-14 09:45 | OP ---
Date of Procedure: 11/14/2020 Surgeon: CARY HINES Procedures Performed: 1.Selective coronary angiogram. 2.Percutaneous coronary intervention of severe proximal to mid left anterior descending stenosis, 99 %, which is a culprit for the acute coronary syndrome. I used 3.0 x 12 mm Synergy drug-eluting stent and inflated to high pressure that gives a size of 3.4 mm. 3.Percutaneous coronary intervention of a distal left anterior descending, severe stenosis distal to this original stent using 2.5 x 12 mm Synergy drug-eluting stent postdilated with high-pressure to 2 .7 mm. Indication: Unstable angina. Access: Right femoral artery 6-Cambodian closed with a 6-Cambodian Angio-Seal. Description Of Procedure: After risks, benefits, and alternatives were explained, the patient agreed to proceed and signed informed consent. The patient was brought into cardiac catheterization [facility], prepped and draped in the usual sterile fashion, and we accessed the right femoral artery using ultrasound and fluoroscopy guidance to place a 6-Cambodian [place] sheath and used fentanyl and versed in incremental doses to achieve adequate moderate sedation. Then, we took a JL4 diagnostic catheter into the aortic root over a J-wire and took standard views and then exchanged for a JR4 diagnostic c atheter and took standard views. Intervention Details: The patient was given heparin to assure ACT level above 250 and then took a 6- Cambodian EBU 3.5 guide into the aortic root over a J-wire, engaged left main, took a short Runthrough w angeles into the left main and then the LAD across the severe stenosis area and then took manual expressi on catheter in attempt to aspirate the thrombus forming in the area of the severe stenosis and then w e took a 2.5 x 50 mm compliant balloon, pre-dilated the lesion, and then took a 3.0 x 50 mm NC balloo n. We dilated the lesion very well and then we took a 2.5 x 12 mm Synergy drug-eluting stent into th e distal edge of the original stent where there was significant stenosis of 80% and then inflated to high pressure that gave a size of 2.70, and then we took a 3.0 x 12 mm Synergy drug-eluting stent to the proximal LAD severe stenosis, which is the culprit and inflated, and overlapped areas were balloo eduar to high pressure. Proximally, the stent was inflated to high pressure that gives a size of 3.4 m m and then we took the wire out and the final angiogram showed a YUMIKO-[id number] flow with excellent results. Then, we removed the guidewire and the sheath was removed. A 6-Cambodian Angio-Seal was placed with go od hemostasis. The patient was loaded with Brilinta 180 mg before starting the procedure as well as aspirin and the ACT was therapeutic throughout the procedure. Findings: 1.Left main is large with luminal irregularities. 2.LAD has a proximal 50% stenosis and then another proximal lesion at the bifurcation of diagonal 1 which was 99% with thrombus formation status post successful PCI as above and there is 80% distal to the original stent which is in mid to distal portion of the LAD severe stenosis, status post PCI succ essfully as above. There was some ISR also in the stent in the mid LAD that was ballooned with 3.0 x 50 mm NC balloon with good results. The rest of the LAD looks normal. 3.Left circumflex has a 20% to 30% proximal disease. 4.RCA is a dominant circulation with 80% proximal disease. The rest of the RCA has luminal irregula rities. Conclusion: Severe LAD and RCA stenosis, status post PCI as above to the LAD successfully. Plan: 1.Due to the chronic kidney disease, we used only 60 cc of contrast, and we elected to stage the int ervention to the RCA at a later time, at which time we will do also FFR of the proximal LAD. 2.Continue Brilinta 90 mg q.12 hours, aspirin 81 mg daily and high-dose statin, and thee patient can be discharged, and follow up as an outpatient in 4 weeks to arrange for staged PCI of RCA and FFR proximally. SR/ROGELIOL Voice ID: [id number] Report ID: [id number]
[2020-11-14] MEDS ORDERED: NITROGLYCERIN 0.4 MG/TAB SL ONE (10:30)
[2020-11-14] MEDS ORDERED: FAMOTIDINE 20 MG/2 ML VIAL IV ONE (10:58)
[2020-11-14] MEDS ORDERED: NA CHLORIDE 0.9% 1,000 ML IV SCH (11:00)
[2020-11-14] MEDS ORDERED: ACETAMINOPHEN 325 MG TABLET PO PRN (11:00)
[2020-11-14] MEDS: FENTANYL CITR 100 MCG/2 ML IV PRN (21:27)
[2020-11-14] MEDS: TICAGRELOR 90 MG TABLET PO SCH (21:27)
[2020-11-14] MEDS: ATORVASTATIN 40 MG TAB PO SCH (21:27)
[2020-11-15] MEDS: FENTANYL CITR 100 MCG/2 ML IV PRN (01:22)
[2020-11-15] MEDS: METOPROLOL TARTRATE 5 MG/5 ML INJ IV SCH ×4 (04:14→22:56)
[2020-11-15 06:08] LABS: Absolute Lymphocytes (CBC) 2.2 K/uL (0.7-4.9); Basophils % 0.4 % (0-1.3); Hematocrit 41.2 % (39.6-49.0); Lymphocytes % 19.6 % (15.3-44.8); MPV 9.6 fL (7.6-11.3); RBC Red Blood Cell Count 4.69 M/uL (4.33-5.43)
[2020-11-15 06:11] LABS: Magnesium 2.7 mg/dL (1.8-2.4)
[2020-11-15] MEDS: TICAGRELOR 90 MG TABLET PO SCH ×2 (08:12→21:03)
[2020-11-15] MEDS: ASPIRIN 81 MG CHEWABLE TABLET PO SCH (08:12)
--- NOTE | 2020-11-15 12:11 | RAD REPORT ---
EXAM DESCRIPTION: US - Lower Extremity Artery Uni Ltd - 11/14/2020 9:30 pm CLINICAL HISTORY: Post femoral heart catheterization TECHNIQUE: Real time images, spectral wave analysis, Doppler color flow analysis and measurement of the arterial velocities of the right lower extremity was performed. COMPARISON: None available for comparison FINDINGS: The peak systolic velocity in the cm/sec on the right side is as follows: Common femoral artery: 71.7, triphasic Middle superficial femoral artery: 55.7, triphasic Popliteal artery: 64.5, triphasic Posterior tibial artery: 77.9, triphasic Dorsalis pedis artery: 43, biphasic Soft tissues: No discrete fluid collection or hematoma. IMPRESSION: 1. There is no evidence of hemodynamically significant stenosis or occlusion. 2. No evidence for subincisional fluid collection/hematoma. Electronically signed by: Kathy Collins MD 11/14/2020 10:11 PM STEEL GRINDER Due to temporary technical issues with the PACS/Fluency reporting system, reports are being signed by the in house radiologist without review as a courtesy to ensure prompt reporting. The interpreting r adiologist is fully responsible for the content of the report.
[2020-11-15] MEDS: PANTOPRAZOLE 40MG TABLET PO SCH (15:43)
--- NOTE | 2020-11-15 16:07 | EKG ---
Test Date: 2020-11-14 Test Time: 21:31:38 Hot Top Liner Helper: RT MEASUREMENT RESULTS: Intervals: Rate: 80 FL: 194 QRSD: 74 QT: 376 QTc: 433 Agness: P: 48 FL: 194 QRS: -30 T: 28 INTERPRETIVE STATEMENTS: Sinus rhythm with premature atrial complexes Left axis deviation Abnormal ECG Compared to ECG 11/14/2020 10:34:41 Myocardial infarct finding no longer present Electronically Signed On 11-15-20 16:05:28 PEARL GLUE OPERATOR by Thang Solo
--- NOTE | 2020-11-15 16:09 | EKG ---
Test Date: 2020-11-14 Test Time: 10:34:41 Asian Studies Program Chair: MEASUREMENT RESULTS: Intervals: Rate: 71 WA: 190 QRSD: 68 QT: 394 QTc: 428 Marissa: P: 55 WA: 190 QRS: -40 T: 7 INTERPRETIVE STATEMENTS: Sinus rhythm with premature atrial complexes Left axis deviation Inferior infarct, age undetermined Abnormal ECG Compared to ECG 11/13/2020 07:53:10 No significant changes Electronically Signed On 11-15-20 16:05:42 L[employer] DEFENSE ARTILLERY CREWMEMBER by Thang Solo
[2020-11-15] MEDS: ATORVASTATIN 40 MG TAB PO SCH (21:03)
[2020-11-16] MEDS ORDERED: BISACODYL E.C. 5 MG TAB PO ONE (00:53)
[2020-11-16] MEDS ORDERED: VENLAFAXINE HCL 75 MG TABLET PO ONE (02:08)
[2020-11-16] MEDS: METOPROLOL TARTRATE 5 MG/5 ML INJ IV SCH ×2 (05:02→11:00)
[2020-11-16] MEDS: PANTOPRAZOLE 40MG TABLET PO SCH (08:37)
[2020-11-16] MEDS: ASPIRIN 81 MG CHEWABLE TABLET PO SCH (08:38)
[2020-11-16] MEDS: TICAGRELOR 90 MG TABLET PO SCH (08:39)
--- NOTE | 2020-11-16 09:47 | P.PN ---
Subjective Date of Service: 11/14/20 Patient no new complaints. Scheduled for cardiac catheterization today Review of Systems 10-point ROS is otherwise unremarkable Physical Examination - Vital Signs Temperature: 98 F Blood Pressure: 141/84 Pulse: 63 Respirations: 20 Pulse Ox (%): 97 - Physical Exam General: Alert, In no apparent distress, Oriented x3 Respiratory: Clear to auscultation bilaterally, Normal air movement Cardiovascular: Regular rate/rhythm, Normal S1 S2, No murmurs Gastrointestinal: Normal bowel sounds, Soft and benign, Non-distended, No tenderness Musculoskeletal: No clubbing, No swelling, No tenderness Neurological: Sensation intact, Cranial nerves 3-12 intact - Studies Medications List Reviewed: Yes Assessment & Plan - Problems (Diagnosis) (1) Unstable angina Current Visit: Yes Status: Acute (2) Chronic renal failure, stage 3 (moderate) Onset Date: 10/31/18 Current Visit: No Status: Acute (3) Hypertension Onset Date: 10/31/18 Current Visit: No Status: Acute - Plan 1. Plan for cardiac catheterization today. Patient with substantially chest pain and diaphoresis and dyspnea on exertion 2. Appreciate Cardiology consultation 3. Continue with anti-platelet therapy and hold anti coagulation pending cardiac catheterization today 4. Continue statin therapy. 5. IV morphine for pain 6. Nitro p.r.n. Discharge Plan: Home Plan to discharge in: 48 Hours - Advance Directives Does patient have a Living Will: No Does patient have a Durable POA for Healthcare: No - Code Status/Comfort Care Code Status Assessed: Yes Code Status: Full Code Critical Care: No Time Spent Managing PTS Care (In Minutes): 35
--- NOTE | 2020-11-16 09:48 | P.PN ---
Subjective Date of Service: 11/15/20 Subjective: Improving Patient had bruising of the right inguinal region from possible hematoma. Pressure applied overnight by cardiac catheterization nurses. Bleeding looks to have stopped. Hemoglobin is stable. Review of Systems 10-point ROS is otherwise unremarkable Physical Examination - Vital Signs Temperature: 98 F Blood Pressure: 141/84 Pulse: 63 Respirations: 20 Pulse Ox (%): 97 - Physical Exam General: Alert, In no apparent distress, Oriented x3 Respiratory: Clear to auscultation bilaterally, Normal air movement Cardiovascular: Regular rate/rhythm, Normal S1 S2, No murmurs Gastrointestinal: Normal bowel sounds, Soft and benign, Non-distended, No tenderness Musculoskeletal: No clubbing, No swelling, No tenderness Neurological: Sensation intact, Cranial nerves 3-12 intact - Studies Medications List Reviewed: Yes Assessment & Plan - Problems (Diagnosis) (1) Unstable angina Current Visit: Yes Status: Acute (2) Chronic renal failure, stage 3 (moderate) Onset Date: 10/31/18 Current Visit: No Status: Acute (3) Hypertension Onset Date: 10/31/18 Current Visit: No Status: Acute - Plan 1. Plan for cardiac catheterization today. Patient with substantially chest pain and diaphoresis and dyspnea on exertion 2. Appreciate Cardiology consultation 3. Continue with anti-platelet therapy and hold anti coagulation pending cardiac catheterization today 4. Continue statin therapy. 5. IV morphine for pain 6. Monitor bruising of the right inguinal region 7. Monitor hemoglobin 8. GI and DVT prophylaxis Discharge Plan: Home Plan to discharge in: Greater than 2 days - Advance Directives Does patient have a Living Will: No Does patient have a Durable POA for Healthcare: No - Code Status/Comfort Care Code Status: Full Code Critical Care: No Time Spent Managing PTS Care (In Minutes): 35
[2020-11-16 10:20] VITALS: O2SAT 97
--- NOTE | 2020-11-16 13:31 | P.DS ---
Discharge Date: 11/16/20 Disposition: ROUTINE DISCHARGE Discharge Condition: GOOD Reason for Admission: Chest pain Consultations: Cardiology - Problems (1) Unstable angina Current Visit: Yes Status: Acute (2) Chronic renal failure, stage 3 (moderate) Onset Date: 10/31/18 Current Visit: No Status: Acute (3) Hypertension Onset Date: 10/31/18 Current Visit: No Status: Acute Brief History of Present Illness: Patient is a 80-year-old gentleman who came to the hospital with unstable angina. He started having chest pain suddenly in came into the emergency room for further evaluation. Vital Signs/Physical Exam: Temp Pulse Resp BP Pulse Ox 98 F 63 20 141/84 H 97 11/16/20 09:48 11/16/20 09:48 11/16/20 09:48 11/16/20 09:48 11/16/20 09:48 General: Alert, In no apparent distress, Oriented x3 Laboratory Data at Discharge: WBC 11.4 K/uL (4.3-10.9) H 11/15/20 05:10 Hgb 14.1 g/dL (13.6-17.9) 11/15/20 05:10 Hct 41.2 % (39.6-49.0) 11/15/20 05:10 Plt Count 180 K/uL (152-406) D 11/15/20 05:10 PT 13.6 SECONDS (9.5-12.5) H 11/13/20 17:40 INR 1.16 11/13/20 17:40 APTT 51.4 SECONDS (24.3-36.9) H 11/14/20 05:36 Sodium 144 mmol/L (136-145) 11/15/20 05:10 Potassium 5.0 mmol/L (3.5-5.1) 11/15/20 05:10 BUN 17 mg/dL (7-18) 11/15/20 05:10 Creatinine 1.73 mg/dL (0.55-1.3) H 11/15/20 05:10 Glucose 94 mg/dL (74-106) 11/15/20 05:10 Magnesium 2.7 mg/dL (1.8-2.4) H 11/15/20 05:10 Total Bilirubin 1.0 mg/dL (0.2-1.0) 11/13/20 08:00 AST 27 U/L (15-37) 11/13/20 08:00 ALT 34 U/L (12-78) 11/13/20 08:00 Alkaline Phosphatase 62 U/L (45-117) 11/13/20 08:00 Triglycerides 208 mg/dL (<150) H 11/13/20 08:00 Cholesterol 194 mg/dL (<200) 11/13/20 08:00 HDL Cholesterol 33 mg/dL (40-60) L 11/13/20 08:00 Cholesterol/HDL Ratio 5.88 11/13/20 08:00 Home Medications: Venlafaxine HCl [Venlafaxine HCl ER] 150 mg PO DAILY 10/30/18 Amlodipine [Norvasc] 5 mg PO DAILY 11/13/20 Chlorthalidone 25 mg PO DAILY 11/13/20 Metoprolol Tartrate 50 mg PO DAILY 11/13/20 Patient Discharge Instructions: OK TO DC IV AND DC HOME. FOLLOW-UP WITH PRIMARY CARE PROVIDER IN 1-2 WEEKS. FOLLOW-UP WITH CARDIOLOGY IN 1-2 WEEKS. RETURN TO THE ER IF symptoms worsen. CALL or TEXT DR. HEADLEY AT [phone] IF ANY QUESTIONS REGARDING HOSPITAL STAY. PLEASE CALL THE FLOOR AT [phone] IF ANY MEDICATION OR NURSING QUESTIONS. Diet: AHA Activity: Fall precautions Followup: NONE,NONE [Primary Care Provider] -
[2020-11-16 13:53] VITALS: BP 160/72; TEMP 97.8
--- NOTE | 2020-11-17 10:27 | PN ---
Date of Progress Note: 11/15/2020 Subjective: Mr. Hernandez underwent a heart catheterization with PTCA of the proximal and mid LAD by Dr. Pak on 11/14/2020. Overnight, he developed a significant right groin hematoma and it was decided to keep him for observation. Overnight, his hematoma was stable. He did not have any complaint exc ept for pain in that region. Objective: Vital signs: Stable. He was afebrile. HEENT: Negative. Neck: Supple. No bruit. Chest: Clear. Pelvic: Right groin showed a hematoma with good femoral pulses and good distal pulses. Medications: He is on aspirin, Lipitor, metoprolol, and Brilinta 90 b.i.d., and he should be on a st atin as well. We will continue to follow him. IDALIA/JENNA Voice ID: [id number] Report ID: [id number]
--- NOTE | 2020-11-17 10:33 | PN ---
Date of Progress Note: 11/16/2020 Subjective: Mr. Hernandez had an intervention by Dr. Pak with an angioplasty and stent of his LAD, mi d and proximal. Developed a hematoma on 11/14/2020. On 11/15/2020, his hematoma was better. He was feeling good. We decided to observe him 1 more day because of the hematoma being enlarged. On 10/20, his hematoma was resolving. His groin was soft and nontender. Good femoral pulses. Good di stal pulses. He has not had any chest pain or any telemetry changes. I am comfortable with him antoinette g home on aspirin, Brilinta, beta-miladis and a statin. We will see him in the office in the next 2 weeks. IDALIA/JENNA Voice ID: [id number] Report ID: [id number]
--- NOTE | 2020-11-22 02:12 | P.DS ---
Discharge Date: 11/16/20 Disposition: ROUTINE DISCHARGE Discharge Condition: GOOD Reason for Admission: Chest pain Consultations: Cardiology - Problems (1) Unstable angina Status: Acute (2) Chronic renal failure, stage 3 (moderate) Onset Date: 10/31/18 Status: Acute (3) Hypertension Onset Date: 10/31/18 Status: Acute Brief History of Present Illness: Patient is a 80-year-old gentleman who came to the hospital with unstable angina. He started having chest pain suddenly in came into the emergency room for further evaluation. Hospital Course: Patient had a cardiac catheterization to the right wrist. Patient had stenting performed of the LAD. Patient is clinically doing well. At this time, patient is stable. Patient did have a little bit of bleeding to the right groin. This has stopped. Patient does have some tenderness where the bruising is. Patient will continue antiplatelet therapy. Patient will continue statin therapy. Patient follow up with cardiology in 1-2 weeks. Vital Signs/Physical Exam: Temp Pulse Resp BP Pulse Ox 97.8 F 72 19 160/72 H 98 11/16/20 12:00 11/16/20 12:00 11/16/20 12:00 11/16/20 12:00 11/16/20 12:00 General: Alert, In no apparent distress, Oriented x3 Laboratory Data at Discharge: WBC 11.4 K/uL (4.3-10.9) H 11/15/20 05:10 Hgb 14.1 g/dL (13.6-17.9) 11/15/20 05:10 Hct 41.2 % (39.6-49.0) 11/15/20 05:10 Plt Count 180 K/uL (152-406) D 11/15/20 05:10 PT 13.6 SECONDS (9.5-12.5) H 11/13/20 17:40 INR 1.16 11/13/20 17:40 APTT 51.4 SECONDS (24.3-36.9) H 11/14/20 05:36 Sodium 144 mmol/L (136-145) 11/15/20 05:10 Potassium 5.0 mmol/L (3.5-5.1) 11/15/20 05:10 BUN 17 mg/dL (7-18) 11/15/20 05:10 Creatinine 1.73 mg/dL (0.55-1.3) H 11/15/20 05:10 Glucose 94 mg/dL (74-106) 11/15/20 05:10 Magnesium 2.7 mg/dL (1.8-2.4) H 11/15/20 05:10 Total Bilirubin 1.0 mg/dL (0.2-1.0) 11/13/20 08:00 AST 27 U/L (15-37) 11/13/20 08:00 ALT 34 U/L (12-78) 11/13/20 08:00 Alkaline Phosphatase 62 U/L (45-117) 11/13/20 08:00 Triglycerides 208 mg/dL (<150) H 11/13/20 08:00 Cholesterol 194 mg/dL (<200) 11/13/20 08:00 HDL Cholesterol 33 mg/dL (40-60) L 11/13/20 08:00 Cholesterol/HDL Ratio 5.88 11/13/20 08:00 Home Medications: Venlafaxine HCl [Venlafaxine HCl ER] 150 mg PO DAILY 10/30/18 Amlodipine [Norvasc*] 5 mg PO DAILY 11/13/20 Chlorthalidone 25 mg PO DAILY 11/13/20 Metoprolol Tartrate 50 mg PO DAILY 11/13/20 Aspirin Chewable [Aspirin Chewable*] 81 mg PO DAILY #30 tab.chew 11/16/20 Atorvastatin Calcium [Lipitor] 40 mg PO BEDTIME #30 tab 11/16/20 Ticagrelor [Brilinta*] 90 mg PO Q12HR #60 tablet 11/16/20 New Medications: Aspirin Chewable [Aspirin Chewable*] 81 mg PO DAILY #30 tab.chew Ticagrelor [Brilinta*] 90 mg PO Q12HR #60 tablet Atorvastatin Calcium [Lipitor] 40 mg PO BEDTIME #30 tab Patient Discharge Instructions: OK TO DC IV AND DC HOME. FOLLOW-UP WITH PRIMARY CARE PROVIDER IN 1-2 WEEKS. FOLLOW-UP WITH CARDIOLOGY IN 1-2 WEEKS. RETURN TO THE ER IF symptoms worsen. CALL or TEXT DR. HEADLEY AT [phone] IF ANY QUESTIONS REGARDING HOSPITAL STAY. PLEASE CALL THE FLOOR AT [phone] IF ANY MEDICATION OR NURSING QUESTIONS. Diet: AHA Activity: Ad suresh Followup: Thang Solo MD [ACTIVE - CAN ADMIT] - NONE,NONE [Primary Care Provider] - Time spent managing pt's care (in minutes): 35
== END 2020-11-16 15:05 | disposition home or self-care (01) | DRG 247 ==
LOC: ER 07:46 → ERHOLD 08:55 → 2ND 20:23
PROVIDERS: ADMIT Internal Medicine Sleep Medicine; ATTEND Hospitalist
PROC: 027035Z Dilation of Coronary Artery, One Artery with Two Drug-eluting Intraluminal Devices, Percutaneous Approach (ICD-10-PCS; principal; 2020-11-14)
PROC: 4A023N7 Measurement of Cardiac Sampling and Pressure, Left Heart, Percutaneous Approach (ICD-10-PCS; 2020-11-14)
PROC: B2111ZZ Fluoroscopy of Multiple Coronary Arteries using Low Osmolar Contrast (ICD-10-PCS; 2020-11-14)
DX: I25.110 Atherosclerotic heart disease of native coronary artery with unstable angina pectoris (principal); I25.2 Old myocardial infarction; I12.9 Hypertensive chronic kidney disease with stage 1 through stage 4 chronic kidney disease, or unspecified chronic kidney disease; N18.30 Chronic kidney disease, stage 3 unspecified; S30.1XXA Contusion of abdominal wall, initial encounter; Z95.5 Presence of coronary angioplasty implant and graft; Z88.5 Allergy status to narcotic agent; Z88.0 Allergy status to penicillin; Z79.899 Other long term (current) drug therapy; Z90.49 Acquired absence of other specified parts of digestive tract; Z79.82 Long term (current) use of aspirin; Z85.46 Personal history of malignant neoplasm of prostate; Z60.2 Problems related to living alone; Z20.828 Contact with and (suspected) exposure to other viral communicable diseases
CPT/HCPCS: 36415; 71045; 80048; 80061; 80076; 83735; 83880; 84484; 85025; 85347; 85610; 85730; 93005; 93454; 93926; 99285; C1725; C1760; C1893; C9600; J1644; J2250; J2405; J3010; J7040; J7060; U0002

== ENCOUNTER 2020-12-12 11:19 | Day surgery (SDC) | payer OTHER ==
[2020-12-09 14:08] LABS: Absolute Lymphocytes (CBC) 2.3 K/uL (0.7-4.9); Basophils % 0.5 % (0-1.3); Lymphocytes % 23.6 % (15.3-44.8); MPV 9.7 fL (7.6-11.3); Potassium 4.6 mmol/L (3.5-5.1); RBC Red Blood Cell Count 4.95 M/uL (4.33-5.43)
[2020-12-09 14:28] LABS: Protime INR 1.08
[2020-12-12] MEDS ORDERED: HEPA 1000U/500MLS 2,000 UNIT/1,000 ML BAG IV ONE (11:27)
[2020-12-12] MEDS ORDERED: NA CHLORIDE 0.9% 500 ML ONE (11:35)
[2020-12-12] MEDS ORDERED: HEPARIN 5000 UNIT/ML 1 ML VIAL ONE (11:59)
[2020-12-12] MEDS ORDERED: MIDAZOLAM HCL 2 MG/2 ML INJ ONE (11:59)
[2020-12-12] MEDS ORDERED: FENTANYL CITR 100 MCG/2 ML ONE (11:59)
[2020-12-12] MEDS ORDERED: VERAPAMIL HCL 10 MG/4 ML VIAL IV ONE (11:59)
[2020-12-12] MEDS ORDERED: HEPARIN 10,000 UNIT/10 ML VIAL IV ONE (11:59)
[2020-12-12] MEDS ORDERED: NITROGLYCERIN 100 MCG/ML SYR (for cath lab use only) IV ONE (12:00)
[2020-12-12] MEDS ORDERED: ATROPINE SULF 1 MG/10 ML SYR IV ONE (12:00)
[2020-12-12] MEDS ORDERED: ACETYLCYST 20% 4 ML VIAL IH ONE (12:04)
[2020-12-12] MEDS ORDERED: TICAGRELOR 90 MG TABLET PO ONE (12:55)
--- NOTE | 2020-12-12 13:13 | OP ---
Date of Procedure: 12/12/2020 Surgeon: CARY HINES Procedure Performed: PCI of severe proximal RCA stenosis using 3.5 x 60 mm Synergy drug-eluting sten t, post inflated to high pressure. Total size of 3.8 mm. Access: Left femoral artery, 6-Indian closed with 6-Indian Angio-Seal. Indication: Unstable angina with known severe RCA disease. Complications: None. Anesthesia: Total sedation time was 35 minutes. Description Of Procedure: After risks, benefits, and alternatives were explained, the patient agreed to proceed and signed informed consent. We brought the patient to the cardiac catheterization labor atory, prepped and draped in usual sterile fashion, and we used fentanyl and versed in incremental do ses to achieve adequate moderate sedation. Then, we accessed the left femoral artery using micropunc ture kit. Subsequently, we placed a 6-Indian [place] sheath and took a 6-Indian JR4 guide into the aortic root, engaged the RCA, gave systemic heparin to assure ACT level above 215, gave 180 mg of Angela linta loading dose. The patient has taken it on a regular basis but did not take it this morning and I took short run-through wire to the RCA crossing the proximal RCA stenosis. We took a 3.0 x 50 mm Compliant balloon inflated to high pressure, pre-dilated the lesion with good expansion. Subsequentl y, took a 3.5 x 16 mm Synergy drug-eluting stent across the stenosis and deployed successfully. The stent balloon was inflated to high pressure that gives a size of 3.8 mm stent. Then, we removed the wire and took final pictures and there was no complications. Excellent apposition of the stent. Conclusion: 1.Severe proximal RCA stenosis status post successful PCI using 3.5 x 16 mm Synergy drug-eluting romeo nt and that was inflated to high pressure. 2.We took the wires and catheters out and the Cook sheath out and we closed the access with 6-Fr ench Angio-Seal successfully with good hemostasis. Recommendation: 1.Brilinta, aspirin, and statin to be continued. 2.Discharge home once criteria met and follow up with me in the office in 4 weeks. SR/MODL Voice ID: [id number] Report ID: [id number]
[2020-12-12 15:55] VITALS: BP 125/81; TEMP 97.4; O2SAT 97
== END 2020-12-12 16:11 | disposition home or self-care (01) ==
LOC: CCL 11:19
PROVIDERS: ATTEND Internal Medicine
PROC: 027034Z Dilation of Coronary Artery, One Artery with Drug-eluting Intraluminal Device, Percutaneous Approach (ICD-10-PCS; principal; 2020-12-12)
DX: I25.110 Atherosclerotic heart disease of native coronary artery with unstable angina pectoris (principal); Z20.822 Contact with and (suspected) exposure to COVID-19; I12.9 Hypertensive chronic kidney disease with stage 1 through stage 4 chronic kidney disease, or unspecified chronic kidney disease; N18.9 Chronic kidney disease, unspecified; Z95.5 Presence of coronary angioplasty implant and graft; Z88.6 Allergy status to analgesic agent; Z88.0 Allergy status to penicillin
CPT/HCPCS: 93005; 85025; 80048; 36415; 85610; 85347; 85730; U0002; C1893; C1760; C1725; C9600; J2250; J3010; J7040; J1644

== ENCOUNTER 2021-12-01 10:18 | Emergency (ER) | payer OTHER ==
[2021-12-01] MEDS ORDERED: TETANUS & DIPHTHERIA TOX,ADULT 0.5 ML VIAL ONE (11:08)
--- NOTE | 2021-12-01 12:21 | RAD REPORT ---
EXAM DESCRIPTION: RAD - Hand Left 3 View - 12/01/2021 12:14 pm CLINICAL HISTORY: 2nd phalanx injury COMPARISON: No comparisons FINDINGS/IMPRESSION: No acute fracture of the left hand, particularly the second phalanx. No malalig nment. No significant focal degenerative changes.
--- NOTE | 2021-12-01 12:31 | ER ---
Nurse's Notes [facility] Name: Jose C Hernandez Age: 81 yrs Sex: Male : 1940 Arrival Date: 12/01/2021 Time: 10:20 Bed 10 Private MD: Diagnosis: Contusion of finger without damage to nail Presentation: 12/01 10:34 Chief complaint: Patient states: Was working in shop doing some wood work and cut self vg1 with 'jagged piece of wood' on Left index finder. States was bleeding, cleaned it and applied pressure. States is taking a blood thinner. Coronavirus screen: Vaccine status: Patient reports receiving the 2nd dose of the covid vaccine. Client denies travel out of the [place] in the last 14 days. Ebola Screen: Patient negative for fever greater than or equal to 101.5 degrees Fahrenheit, and additional compatible Ebola Virus Disease symptoms. Initial Sepsis Screen: Does the patient meet any 2 criteria? No. Patient's initial sepsis screen is negative. Does the patient have a suspected source of infection? No. Patient's initial sepsis screen is negative. Risk Assessment: Do you want to hurt yourself or someone else? Patient reports no desire to harm self or others. Onset of symptoms was December 01, 2021. 10:34 Method Of Arrival: Ambulatory vg1 10:34 Acuity: CARLTON 3 vg1 Triage Assessment: 10:42 General: Appears in no apparent distress. comfortable, Behavior is calm, cooperative. vg1 Pain: Complains of pain in left index finger Pain currently is 7 out of 10 on a pain scale. Musculoskeletal: Circulation, motion, and sensation intact. Injury Description: Laceration sustained to Left index finger. Historical: - Allergies: 10:40 Morphine (cardiac arrest); vg1 10:40 PENICILLINS (cardiac arrest); vg1 - Home Meds: 10:40 amlodipine 5 mg tab 1 tab once daily [Active]; venlafaxine 225 mg Oral tr24 1 tab once vg1 daily [Active]; metoprolol tartrate 50 mg Oral tab 1 tab 2 times per day [Active]; chlorthalidone 25 mg Oral tab 1 tab once daily [Active]; 10:42 Brilinta oral [Active]; vg1 - PMHx: 10:40 75% Kidney failure; Depression; Hypertension; Myocardial infarction; vg1 10:42 Cancer- Urinary Bladder; Leukemia; Cancer- Prostate; vg1 - Immunization history:: Client reports receiving the 2nd dose of the Covid vaccine. - Social history:: Smoking status: Patient denies any tobacco usage or history of. Screenin:04 Abuse screen: Denies threats or abuse. Denies injuries from another. Nutritional ab2 screening: No deficits noted. Tuberculosis screening: No symptoms or risk factors identified. Fall Risk None identified. Assessment: 11:02 Pain: Complains of pain in palmar aspect of distal phalanx of left index finger and ab2 palmar aspect of middle phalanx of left index finger Pain currently is 6 out of 10 on a pain scale. Quality of pain is described as throbbing. Neuro: No deficits noted. 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 Gait is steady, Speech is normal, Facial symmetry appears normal. Cardiovascular: No deficits noted. Denies chest pain, shortness of breath, Pulses are palpable in right radial artery and left radial artery. Respiratory: No deficits noted. Airway is patent Breath sounds are clear. GI: No deficits noted. No signs and/or symptoms were reported involving the gastrointestinal system. : No deficits noted. No signs and/or symptoms were reported regarding the genitourinary system. EENT: No deficits noted. No signs and/or symptoms were reported regarding the EENT system. Derm: Wound noted palmar aspect of distal phalanx of left index finger and palmar aspect of middle phalanx of left index finger Wound is Pt was cut with jagged piece of wood. Musculoskeletal: No deficits noted. No signs and/or symptoms reported regarding the musculoskeletal system. Vital Signs: 10:34 BP 161 / 98; Pulse 72; Resp 16; Temp 98.2; Pulse Ox 100% ; Weight 84.82 kg; Height 6 vg1 ft. 0 in. (182.88 cm); Pain 7/10; 11:56 BP 156 / 78; Pulse 81; Resp 16; Pulse Ox 99% on R/A; ab2 10:34 Body Mass Index 25.36 (84.82 kg, 182.88 cm) vg1 ED Course: 10:20 Patient arrived in ED. ds1 10:31 Clement Borja PA is PHCP. jmm 10:31 Lionel Roland MD is Attending Physician. jmm 10:40 Triage completed. vg1 10:42 Arm band placed on. vg1 10:51 Harjinder Peraza is Primary Nurse. ab2 11:04 Patient has correct armband on for positive identification. Bed in low position. Call ab2 light in reach. 11:04 No provider procedures requiring assistance completed. ab2 11:12 Irrigation on palmar aspect of distal phalanx of left index finger and palmar aspect of ab2 middle phalanx of left index finger irrigated with normal saline Patient tolerated well. 12:14 Hand Left 3 View XRAY In Process Unspecified. EDMS 12:30 Benjamin Lopez MD is Referral Physician. [facility] 12:38 Dressings: 4x4 and coban applied to finger. ab2 12:38 Patient did not have IV access during this emergency room visit. 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 Exp: ab2 04/07/2023. Lot #: [id number]. } Route: IM; Site: right deltoid; 12:38 Follow up: Response: No adverse reaction ab2 Outcome: 12:30 Discharge ordered by MD. [facility] 12:38 Discharged to home ab2 12:38 Condition: good 12:38 Discharge instructions given to patient, Instructed on discharge instructions, follow up and referral plans. Demonstrated understanding of instructions, follow-up care, medications, Prescriptions given X 1. 12:38 Patient left the ED. ab2 Signatures: Dispatcher [employer] EDNV Clement Borja PA PA Margaret Hoskins ds1 Alysa Sharif, RN RN vg1 Harjinder Peraza ab2 Corrections: (The following items were deleted from the chart) 10:42 10:34 Chief complaint: Patient states: Was working in shop doing some wood work and cut vg1 self with 'jagged piece of wood' on Left index finder. States was bleeding, cleaned it and applied pressure. vg1 10:42 10:34 Acuity: CARLTON 4 vg1 vg1
--- NOTE | 2021-12-01 12:31 | EDPHYS ---
Physician Documentation [facility] Name: Jose C Hernandez Age: 81 yrs Sex: Male : 1940 Arrival Date: 12/01/2021 Time: 10:20 Bed 10 Private MD: ED Physician Lionel Roland HPI: 12/01 10:58 This 81 yrs old Male presents to ER via Ambulatory with complaints of Finger Injury. jmm 10:58 The patient or guardian reports injury, pain. Onset: The symptoms/episode jmm began/occurred acutely, yesterday. Modifying factors: The symptoms are alleviated by nothing, the symptoms are aggravated by nothing. Associated signs and symptoms: Pertinent negatives: decreased sensation distally, numbness distally, tingling distally, vomiting. patient states his left 2nd finger was injured by a piece of wood which was projectile like coming from a wood lathe. Denies head injury. Had difficulty controlling bleeding originally. Patient sent from PCP for suturing. Patient is not utd on tetanus immunization. Historical: - Allergies: 10:40 Morphine (cardiac arrest); vg1 10:40 PENICILLINS (cardiac arrest); vg1 - Home Meds: 10:40 amlodipine 5 mg tab 1 tab once daily [Active]; venlafaxine 225 mg Oral tr24 1 tab once vg1 daily [Active]; metoprolol tartrate 50 mg Oral tab 1 tab 2 times per day [Active]; chlorthalidone 25 mg Oral tab 1 tab once daily [Active]; 10:42 Brilinta oral [Active]; vg1 - PMHx: 10:40 75% Kidney failure; Depression; Hypertension; Myocardial infarction; vg1 10:42 Cancer- Urinary Bladder; Leukemia; Cancer- Prostate; vg1 - Immunization history:: Client reports receiving the 2nd dose of the Covid vaccine. - Social history:: Smoking status: Patient denies any tobacco usage or history of. ROS: 10:58 Constitutional: Negative for fever, chills, and weight loss, Cardiovascular: Negative jmm for chest pain, palpitations, and edema, Respiratory: Negative for shortness of breath, cough, wheezing, and pleuritic chest pain. 10:58 MS/extremity: Positive for injury or acute deformity, laceration. 10:58 All other systems are negative. Exam: 10:58 Constitutional: This is a well developed, well nourished patient who is awake, alert, jmm and in no acute distress. Head/Face: atraumatic. Eyes: EOMI, no conjunctival erythema appreciated ENT: Moist Mucus Membranes Neck: Trachea midline, Supple Chest/axilla: Normal chest wall appearance and motion. Cardiovascular: Regular rate and rhythm. No edema appreciated Respiratory: Normal respirations, no respiratory distress appreciated Abdomen/GI: Non distended, soft Back: Normal ROM 10:58 Musculoskeletal/extremity: FROM appreciated to the left 2nd pip and dip, < 2 sec dist cap refill, NVI. 10:58 Skin: avulsion noted to the left 2nd finger. 10:58 Neuro: Orientation: is normal, Mentation: is normal, Memory: is normal. 10:58 Psych: Behavior/mood is pleasant, cooperative. Vital Signs: 10:34 BP 161 / 98; Pulse 72; Resp 16; Temp 98.2; Pulse Ox 100% ; Weight 84.82 kg; Height 6 vg1 ft. 0 in. (182.88 cm); Pain 7/10; 11:56 BP 156 / 78; Pulse 81; Resp 16; Pulse Ox 99% on R/A; ab2 10:34 Body Mass Index 25.36 (84.82 kg, 182.88 cm) vg1 MDM: 10:58 Patient medically screened. [facility] 12:23 Data reviewed: vital signs, nurses notes. Counseling: I had a detailed discussion with jose roberto the patient and/or guardian regarding: the historical points, exam findings, and any diagnostic results supporting the discharge/admit diagnosis, radiology results, the need for outpatient follow up, to return to the emergency department if symptoms worsen or persist or if there are any questions or concerns that arise at home. ED course: wound care provided. patient advised to follow up with pcp and otherwise given strict return precautions. patient understood and agrees with the plan of care. . 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 Exp: ab2 04/07/2023. Lot #: [id number]. } Route: IM; Site: right deltoid; 12:38 Follow up: Response: No adverse reaction ab2 Disposition: 18:00 Co-signature as Attending Physician, Lionel Roland MD I agree with the assessment and kdr plan of care. Disposition Summary: 12/01/21 12:30 Discharge Ordered Location: Home [facility] Condition: Stable jmm Diagnosis - Contusion of finger without damage to nail [facility] Followup: [facility] - With: Benjamin Lopez MD - When: 2 - 3 days - Reason: Recheck today's complaints, Continuance of care, Re-evaluation by your physician Discharge Instructions: - Discharge Summary Sheet [facility] - Nonsutured Laceration Care [facility] Forms: - Medication Reconciliation Form [facility] - Thank You Letter [facility] - Antibiotic Education [facility] - Prescription Opioid Use [facility] Prescriptions: - Doxycycline Monohydrate 100 mg Oral Tablet - take 1 tablet by ORAL route every 12 hours for 10 days; 20 tablet; Refills: 0, [facility] Product Selection Permitted Signatures: Dispatcher [employer] EDMS Lionel Roland MD MD kdr Mickail, Joel, PA PA Alysa Eller RN RN vg1 Harjinder Peraza
[2021-12-01 13:26] VITALS: TEMP 98.2
[2021-12-01 13:27] VITALS: BP 156/78; O2SAT 99
== END 2021-12-01 12:38 | disposition home or self-care (01) ==
LOC: ER 10:18
DX: S60.022A Contusion of left index finger without damage to nail, initial encounter (principal); W26.8XXA Contact with other sharp object(s), not elsewhere classified, initial encounter; Z23 Encounter for immunization; I10 Essential (primary) hypertension; Z88.0 Allergy status to penicillin; Z88.5 Allergy status to narcotic agent; Z85.46 Personal history of malignant neoplasm of prostate; Z85.51 Personal history of malignant neoplasm of bladder
CPT/HCPCS: 90471; 90714; 99284

== ENCOUNTER 2023-03-06 20:31 | Inpatient (IN) | payer OTHER ==
--- NOTE | 2023-03-06 22:03 | RAD REPORT ---
EXAM DESCRIPTION: RAD - Foot Left 3 View - 03/06/2023 9:47 pm CLINICAL HISTORY: PAIN COMPARISON: FOOT W OBLIQUES dated 06/08/2008 FINDINGS/IMPRESSION: No acute fracture. No malalignment. Plantar aspect calcaneal spur.
[2023-03-06] MEDS ORDERED: FENTANYL CITR 100 MCG/2 ML ONE (22:29)
[2023-03-06 22:34] LABS: Hematocrit 42.5 % (39.6-49.0); Lymphocytes % 10.7 % (15.3-44.8); MCV 88.8 fL (80-100); RBC Red Blood Cell Count 4.78 M/uL (4.33-5.43)
--- NOTE | 2023-03-06 22:37 | RAD REPORT ---
EXAM DESCRIPTION: US - Extremity Venous Uni Ltd - 03/06/2023 10:28 pm CLINICAL HISTORY: Pain COMPARISON: None. TECHNIQUE: Real-time sonographic evaluation of the left lower extremity deep venous system was perfo rmed. FINDINGS: Normal compressibility, flow augmentation, phasic flow and spontaneous flow is identified in the left lower extremity deep venous system. No intraluminal filling defects seen. IMPRESSION: No DVT in the left lower extremity.
--- NOTE | 2023-03-06 22:41 | RAD REPORT ---
EXAM DESCRIPTION: US - Lower Extremity Artery Uni Ltd - 03/06/2023 10:28 pm CLINICAL HISTORY: Leg pain COMPARISON: None FINDINGS: The common femoral, superficial femoral and popliteal arteries bilaterally demonstrate triphasic wave forms The posterior tibial artery has triphasic waveforms. The dorsalis pedis artery has monophasic wavefor ms. IMPRESSION: Monophasic waveform in the left dorsalis pedis artery suggesting a moderate or severe st enosis. The remaining vessels have multiphasic waveforms without hemodynamically significant stenosis .
[2023-03-06 22:59] LABS: Albumin 3.8 g/dL (3.4-5.0); Bilirubin Total 1.7 mg/dL (0.2-1.0); C-Reactive Protein 70.9 mg/L (<3.00); Potassium 3.8 mEq/L (3.5-5.1); Protein, Total 7.5 g/dL (6.4-8.2); Uric Acid 6.6 mg/dL (3.5-7.2)
--- NOTE | 2023-03-06 23:18 | EDPHYS ---
Physician Documentation [facility] Name: Jose C Hernandez Age: 82 yrs Sex: Male : 1940 Arrival Date: 03/06/2023 Time: 20:31 Bed 15 Private MD: Julien [facility] ED Physician Alex Cunha HPI: 03/06 21:40 This 82 yrs old Male presents to ER via Wheelchair with complaints of Foot Pain. cp 21:40 The patient presents with pain, that is acute. The complaints affect the left foot. cp Context: resulted from an unknown cause, the patient can partially bear weight, the patient is able to ambulate, with moderate difficulty. Onset: The symptoms/episode began/occurred yesterday, and became worse today. Associated signs and symptoms: Pertinent positives: swelling, warmth, Pertinent negatives fever, weakness. Treatment prior to arrival includes: no previous treatment. Historical: - Allergies: 20:55 Morphine (cardiac arrest); kl 20:55 PENICILLINS (cardiac arrest); kl - Home Meds: 20:55 venlafaxine 225 mg Oral tr24 1 tab once daily [Active]; BRILINTA Oral [Active]; kl nebivolol 5 mg oral tablet daily [Active]; atorvastatin 40 mg oral tablet every evening [Active]; - PMHx: 20:55 75% Kidney failure; Cancer- Prostate; Cancer- Urinary Bladder; Depression; kl Hypertension; Leukemia; Myocardial infarction; MD; - PSHx: 20:55 TURP; Stented artery; kl - Immunization history:: Adult Immunizations up to date, Last tetanus immunization: up to date. - Social history:: Smoking status: Patient denies any tobacco usage or history of. ROS: 21:45 Constitutional: Positive for chills, Negative for fever, poor PO intake. cp 21:45 Eyes: Negative for injury, pain, redness, and discharge. cp 21:45 ENT: Negative for drainage from ear(s), ear pain, sore throat, difficulty swallowing, difficulty handling secretions. 21:45 Cardiovascular: Negative for chest pain, edema, palpitations. 21:45 Respiratory: Negative for cough, shortness of breath, wheezing. 21:45 Abdomen/GI: Negative for abdominal pain, vomiting, diarrhea, constipation. 21:45 Back: Negative for pain at rest, pain with movement. 21:45 MS/extremity: Positive for erythema, pain, swelling, tenderness, of the left foot, Negative for injury or acute deformity, paresthesias. 21:45 Neuro: Negative for altered mental status, dizziness, headache, numbness, weakness. 21:45 All other systems are negative. Exam: 21:50 Constitutional: The patient appears in no acute distress, alert, awake, cp non-diaphoretic, non-toxic, well developed, well nourished, uncomfortable. 21:50 Head/Face: Normocephalic, atraumatic. cp 21:50 Eyes: Periorbital structures: appear normal, Conjunctiva: normal, no exudate, no injection, Sclera: no appreciated abnormality, Lids and lashes: appear normal, bilaterally. 21:50 ENT: External ear(s): are unremarkable, Nose: is normal, Mouth: Lips: moist, Oral mucosa: pink and intact, moist, Posterior pharynx: is normal, airway is patent, no erythema, no exudate. 21:50 Chest/axilla: Inspection: normal. 21:50 Cardiovascular: Rate: tachycardic, Rhythm: regular, Edema: is not appreciated, JVD: is not appreciated. 21:50 Respiratory: the patient does not display signs of respiratory distress, Respirations: normal, no use of accessory muscles, no retractions, labored breathing, is not present, Breath sounds: are clear throughout, no decreased breath sounds, no stridor, no wheezing. 21:50 Abdomen/GI: Inspection: abdomen appears normal, Palpation: abdomen is soft and non-tender, in all quadrants. 21:50 Back: pain, is absent, ROM is normal. 21:50 Musculoskeletal/extremity: Extremities: noted in the left foot: pain and marked tenderness of dorsum left foot, toes with erythema that advances proximally, mild swelling, Perfusion: the extremity is normally perfused throughout. 21:50 Skin: superficial wounds noted to medial aspect left foot. 21:50 Neuro: Orientation: to person, place \T\ time. Mentation: is normal, Motor: moves all fours, strength is normal. 23:04 ECG was reviewed by the Attending Physician. cp Vital Signs: 20:52 BP 123 / 68; Pulse 67; Resp 100; Temp 98; Pulse Ox 100% on R/A; Weight 85.28 kg; Height kl 5 ft. 11 in. ; Pain 9/10; 22:37 Resp 18; kl 22:57 BP 136 / 74; Pulse 61; Resp 17; Pulse Ox 99% on R/A; ll3 03/07 00:30 BP 127 / 75; Pulse 67; Resp 15; Pulse Ox 96% on R/A; ll3 03/06 20:52 Body Mass Index 26.22 (85.28 kg, 180.34 cm) kl 03/06 20:52 Pain Scale: Adult kl MDM: 03/06 21:01 Patient medically screened. cp 22:00 Differential diagnosis: cellulitis, gout, abscess, sepsis, osteomyelitis, DVT. cp 23:15 Data reviewed: vital signs, nurses notes, lab test result(s), EKG, radiologic studies, cp plain films, ultrasound. 23:15 Consideration of Admission/Observation Patient was admitted/placed on observation. cp Management of patient was discussed with the following: Hospitalist: Cindy Anaya, CLINICAL EDITOR will admit after discussion. Independent interpretation of the following test(s) in the Emergency Department EKG: See my EKG interpretation above. Care significantly affected by the following chronic conditions: Chronic Kidney Disease. 23:15 ED course: patient qualifies for severe sepsis: A) source of infection is cellulitis of cp left foot. B) HR >90 and WBC of 18. C) lactate >2. 03/07 00:08 Post IV fluid administration reassessment for Sepsis: Client not prescribed the 30 cp mL/kg IVF due to: Amount of IVF prescribed: 1999 Sepsis focused reassessment complete. Focused Assessment performed: March 07, 2023 at 00:09 Heart: Regular rate/rhythm noted. Lungs: Noted to be clear bilaterally. 03/06 21:34 Order name: Blood Culture Adult (2) cp 03/06 21:34 Order name: CBC with Diff; Complete Time: 23:11 cp 03/06 23:11 Interpretation: Normal except: WBC 18.40; DAVID% 77.3; LYM% 10.7; NEUT A 14.2; MNA 1.9. cp 03/06 21:34 Order name: CMP; Complete Time: 23:11 cp 03/07 01:09 Interpretation: Normal except: NA 134; BUN 22; CRE 1.91; GFR 35; AST 14; BILIT 1.7; cp GLOB 3.7; A/G 1.0. 03/06 21:34 Order name: Lactate w/ 2H reflex if indic.; Complete Time: 23:11 cp 03/06 21:34 Order name: Protime (+inr); Complete Time: 01:08 cp 03/06 21:34 Order name: Ptt, Activated; Complete Time: 01:08 cp 03/06 21:34 Order name: CRP; Complete Time: 23:11 cp 03/06 21:34 Order name: Urinalysis W/Microscopic; Complete Time: 01:08 cp 03/06 21:34 Order name: Uric Acid; Complete Time: 23:11 cp 03/06 22:22 Order name: Glucose, Ancillary Testing; Complete Time: 22:39 EDMS 03/07 01:09 Order name: Lactate w/ 2H reflex if indic. cp 03/07 01:59 Order name: Lactate Sepsis 2 HR Follow-up EDMS 03/07 04:33 Order name: CBC with Automated Diff EDMS 03/07 04:51 Order name: Vancomycin Peak EDMS 03/07 05:15 Order name: Basic Metabolic Panel EDMS 03/07 05:15 Order name: Phosphorus EDMS 03/07 05:15 Order name: Lipid Profile EDMS 03/07 05:15 Order name: C-Reactive Protein EDMS 03/07 05:15 Order name: Magnesium EDMS 03/06 21:34 Order name: XRAY Foot LEFT 3 View; Complete Time: 22:39 cp 03/06 22:39 Interpretation: Reviewed report. cp 03/06 21:34 Order name: US Extremity Venous Unilateral Ltd; Complete Time: 23:11 cp 03/06 21:34 Order name: US LE Artery Uni Ltd; Complete Time: 23:11 cp 03/06 21:34 Order name: EKG; Complete Time: 21:34 cp 03/06 21:34 Order name: Accucheck; Complete Time: 22:19 cp 03/06 21:34 Order name: Cardiac monitoring; Complete Time: 23:01 cp 03/06 21:34 Order name: EKG - Nurse/Tech; Complete Time: 22:57 cp 03/06 21:34 Order name: IV Saline Lock - Large Bore; Complete Time: 22:19 cp 03/06 21:34 Order name: Labs collected and sent; Complete Time: 22:36 cp 03/06 21:34 Order name: O2 Per Protocol; Complete Time: 22:20 cp 03/06 21:34 Order name: O2 Sat Monitoring; Complete Time: 22:20 cp 03/06 21:34 Order name: Vital Signs; Complete Time: 22:57 cp EC/19 23:04 Rate is 56 beats/min. Rhythm is regular. MN interval is normal. QRS interval is normal. cp QT interval is normal. T waves are Inverted in lead aVR. Interpreted by me. Reviewed by me. Administered Medications: 22:29 Drug: fentaNYL (PF) IVP 25 mcg Route: IVP; Site: right antecubital; 3 03/07 00:19 Follow up: Response: No adverse reaction 3 03/06 23:28 Drug: NS 0.9% IV 1000 ml Route: IV; Rate: 1 bolus; Site: right antecubital; ll3 03/07 00:58 Follow up: Response: No adverse reaction; IV Status: Completed infusion; IV Intake: ll3 1000ml 03/06 23:28 Drug: Cefepime IVPB 1 grams Route: IVPB; Rate: 200 ml/hr; Infused Over: 30 mins; Site: ll3 right antecubital; 03/07 00:19 Follow up: Response: No adverse reaction; IV Status: Completed infusion; IV Intake: ll3 100ml 00:18 Drug: vancoMYCIN IVPB 1 grams Route: IVPB; Infused Over: 2 hrs; Site: right antecubital;ll3 02:09 Follow up: Response: No adverse reaction; IV Status: Completed infusion; IV Intake: ll3 250ml 00:18 Drug: HYDROmorphone IVP 1 mg Route: IVP; Site: right antecubital; ll3 02:09 Follow up: Response: No adverse reaction; Marked relief of symptoms; Pain is decreased ll3 00:58 Drug: NS 0.9% IV 1000 ml Route: IV; Rate: 1 bolus; Site: right antecubital; ll3 02:09 Follow up: Response: No adverse reaction; IV Status: Completed infusion; IV Intake: ll3 1000ml Disposition: 01:46 Co-signature as Attending Physician, Alex Cunha MD I agree with the assessment sp4 and plan of care. I reviewed the patient's care provided by the Advanced Practice Provider and agree with the diagnosis and treatment plan. Disposition Summary: 03/06/23 23:17 Hospitalization Ordered Hospitalization Status: Inpatient Admission cp Provider: Monet Baca cp Condition: Stable cp Problem: new cp Symptoms: have improved cp Bed/Room Type: Standard cp Location: Telemetry/MedSurg (Inpatient)(03/07/23 14:18) em1 Room Assignment: 203(03/07/23 14:18) em1 Diagnosis - Cellulitis and acute lymphangitis of other parts of limb - left foot cp - Severe sepsis without septic shock cp Forms: - Medication Reconciliation Form cp - SBAR form cp Signatures: Dispatcher [employer] EDKourtney Lugo RN RN kl Martinez, Eric em1 Jasbir Ochoa PA PA cp Sirisha Sharif RN RN cg Loubet, Lynsea, RN RN ll3 Alex Cunha MD MD sp4 Corrections: (The following items were deleted from the chart) 03/06 23:43 23:17 Telemetry/MedSurg (Inpatient) cp cg 23:43 23:17 cp cg 03/07 14:18 03/06 23:43 [facility] ER HOLD cg em1 03/07 14:18 03/06 23:43 ERHOLD- cg em1
--- NOTE | 2023-03-06 23:18 | ER ---
Nurse's Notes [facility] Name: Jose C Hernandez Age: 82 yrs Sex: Male : 1940 Arrival Date: 03/06/2023 Time: 20:31 Bed 15 Private MD: Marvin Victoria Diagnosis: Cellulitis and acute lymphangitis of other parts of limb-left foot;Severe sepsis without septic shock Presentation: 03/06 20:52 Chief complaint: Patient states: left foot pain began yesterday am worse today. Coronavirus screen: Vaccine status: Patient reports receiving the 2nd dose of the covid vaccine. Ebola Screen: Patient negative for fever greater than or equal to 101.5 degrees Fahrenheit, and additional compatible Ebola Virus Disease symptoms. Initial Sepsis Screen: Does the patient meet any 2 criteria? No. Patient's initial sepsis screen is negative. Does the patient have a suspected source of infection? No. Patient's initial sepsis screen is negative. Risk Assessment: Do you want to hurt yourself or someone else? Patient reports no desire to harm self or others. 20:52 Method Of Arrival: Wheelchair 20:52 Acuity: [place] 3 Triage Assessment: 20:57 General: Appears uncomfortable, well groomed, well developed, Behavior is calm, kl cooperative. Pain: Complains of pain in dorsum of left foot Pain currently is 8 out of 10 on a pain scale. at worst was 10 out of 10 on a pain scale. Historical: - Allergies: 20:55 Morphine (cardiac arrest); kl 20:55 PENICILLINS (cardiac arrest); kl - Home Meds: 20:55 venlafaxine 225 mg Oral tr24 1 tab once daily [Active]; BRILINTA Oral [Active]; kl nebivolol 5 mg oral tablet daily [Active]; atorvastatin 40 mg oral tablet every evening [Active]; - PMHx: 20:55 75% Kidney failure; Cancer- Prostate; Cancer- Urinary Bladder; Depression; kl Hypertension; Leukemia; Myocardial infarction; AR; - PSHx: 20:55 TURP; Stented artery; kl - Immunization history:: Adult Immunizations up to date, Last tetanus immunization: up to date. - Social history:: Smoking status: Patient denies any tobacco usage or history of. Screenin:50 [facility] ED Fall Risk Assessment (Adult) History of falling in the last 3 months, ll3 including since admission No falls in past 3 months (0 pts) Confusion or Disorientation No (0 pts) Intoxicated or Sedated No (0 pts) Impaired Gait No (0 pts) Mobility Assist Device Used No (0 pt) Altered Elimination No (0 pt) Score/Fall Risk Level 0 - 2 = Low Risk Oriented to surroundings, Maintained a safe environment, Educated pt \T\ family on fall prevention, incl call for assistance when getting out of bed. Abuse screen: Denies threats or abuse. Denies injuries from another. Nutritional screening: No deficits noted. Tuberculosis screening: No symptoms or risk factors identified. Assessment: 22:50 General: Appears uncomfortable, Behavior is calm, cooperative. Pain: Complains of pain ll3 in dorsum of left foot Pain radiates to left leg Pain currently is 8 out of 10 on a pain scale. Pain began 1 day ago. Is continuous. Neuro: Level of Consciousness is awake, alert, obeys commands, Oriented to person, place, time, situation. Derm: Skin is red streaks noted going up left foot Reports pain that is 8 out of 10 on a pain scale. Musculoskeletal: Circulation, motion, and sensation intact. Reports pain in dorsum of left foot States it is painful to stand. Vital Signs: 20:52 BP 123 / 68; Pulse 67; Resp 100; Temp 98; Pulse Ox 100% on R/A; Weight 85.28 kg; Height kl 5 ft. 11 in. ; Pain 9/10; 22:37 Resp 18; kl 22:57 BP 136 / 74; Pulse 61; Resp 17; Pulse Ox 99% on R/A; ll3 03/07 00:30 BP 127 / 75; Pulse 67; Resp 15; Pulse Ox 96% on R/A; ll3 03/06 20:52 Body Mass Index 26.22 (85.28 kg, 180.34 cm) 03/06 20:52 Pain Scale: Adult ED Course: 03/06 20:36 Patient arrived in ED. es 20:36 Marvin Victoria DO is Private Physician. es 20:48 Jasbir Ochoa PA is PHCP. cp 20:48 Alex Cunha MD is Attending Physician. cp 20:54 Triage completed. kl 21:49 XRAY Foot LEFT 3 View In Process Unspecified. EDMS 22:30 US Extremity Venous Unilateral Ltd In Process Unspecified. EDMS 22:30 US LE Artery Uni Ltd In Process Unspecified. EDMS 22:50 Patient has correct armband on for positive identification. Bed in low position. Call ll3 light in reach. Side rails up X 1. 22:50 Inserted saline lock: 20 gauge in right antecubital area, using aseptic technique. ll3 Blood collected. 22:53 Arm band placed on Patient placed in an exam room, on a stretcher, on pulse oximetry. ll3 23:08 Notified ED physician of a critical lab result(s). Lac 3.0. ll3 23:16 Monet Baca MD is Hospitalizing Provider. cp 03/07 01:00 No provider procedures requiring assistance completed. Patient admitted, IV remains in ll3 place. Administered Medications: 03/06 22:29 Drug: fentaNYL (PF) IVP 25 mcg Route: IVP; Site: right antecubital; ll3 03/07 00:19 Follow up: Response: No adverse reaction 3 03/06 23:28 Drug: NS 0.9% IV 1000 ml Route: IV; Rate: 1 bolus; Site: right antecubital; ll3 04 00:58 Follow up: Response: No adverse reaction; IV Status: Completed infusion; IV Intake: ll3 1000ml 03/06 23:28 Drug: Cefepime IVPB 1 grams Route: IVPB; Rate: 200 ml/hr; Infused Over: 30 mins; Site: ll3 right antecubital; 03/07 00:19 Follow up: Response: No adverse reaction; IV Status: Completed infusion; IV Intake: ll3 100ml 00:18 Drug: vancoMYCIN IVPB 1 grams Route: IVPB; Infused Over: 2 hrs; Site: right antecubital;ll3 02:09 Follow up: Response: No adverse reaction; IV Status: Completed infusion; IV Intake: ll3 250ml 00:18 Drug: HYDROmorphone IVP 1 mg Route: IVP; Site: right antecubital; ll3 02:09 Follow up: Response: No adverse reaction; Marked relief of symptoms; Pain is decreased ll3 00:58 Drug: NS 0.9% IV 1000 ml Route: IV; Rate: 1 bolus; Site: right antecubital; ll3 02:09 Follow up: Response: No adverse reaction; IV Status: Completed infusion; IV Intake: ll3 1000ml Medication: 01:00 VIS not applicable for this client. ll3 Intake: 00:19 IV: 100ml; Total: 100ml. ll3 00:58 IV: 1000ml; Total: 1100ml. ll3 02:09 IV: 1000ml; Total: 2100ml. ll3 02:09 IV: 250ml; Total: 2350ml. ll3 Outcome: 03/06 23:17 Decision to Hospitalize by Provider. alexia 03/07 01:00 Admitted to ER Hold. Please see [facility] for further documentation. ll3 Condition: stable Instructed on the need for admit. 15:07 Patient left the ED. ld1 Signatures: Dispatcher [employer] Kourtney Patino, RN RN Maricel Claros Corey, PA PA cp Sims, Lauren, RN RN ld1 J Carlos Ann RN RN ll3
[2023-03-06] MEDS ORDERED: NA CHLORIDE 0.9% 250 ML ONE (23:25)
[2023-03-06] MEDS ORDERED: VANCOMYCIN 1 GM/VIAL ONE (23:25)
[2023-03-06] MEDS ORDERED: CEFEPIME 1 GM/VIAL ONE (23:25)
[2023-03-06] MEDS ORDERED: NA CHLORIDE 0.9% 1,000 ML ONE (23:25)
[2023-03-06] MEDS ORDERED: NA CHLORIDE 0.9% 100 ML ONE (23:25)
[2023-03-06 23:32] LABS: Protime INR 1.14
--- NOTE | 2023-03-06 23:33 | P.HP ---
Certification for Inpatient Patient admitted to: Inpatient With expected LOS: >2 Midnights Patient will require the following post-hospital care: None Practitioner: I am a practitioner with admitting privileges, knowledge of patient current condition, hospital course, and medical plan of care. Services: Services provided to patient in accordance with Admission requirements found in Title 42 Section 412.3 of the Code of Federal Regulations Patient History Date of Service: 03/07/23 Primary Care Provider: Julien Reason for admission: Cellulitus L Foot, Severe Sepsis History of Present Illness: Mr. Hernandez is an 82 year old male (hard of hearing) with hypertension, coronary artery disease, history of prostate cancer, and CKD who presented to the emergency department with complaints of left foot pain. Patient states that he tried to dig out his ingrown big toenail a few days go and his cat also scratched the same foot. He noticed his foot was warm with some red streaking today and came to the ED for evaluation. His labs are significant for WBC 18, lactate 3, CRP 70. Foot xray negative. Venous US negative for DVT. Arterial US showed " Monophasic waveform in the left dorsalis pedis artery suggesting a moderate or severe stenosis. The remaining vessels have multiphasic waveforms without hemodynamically significant stenosis." He was started on vancomyin and cefepime in the emergency department and will be admitted for further management. Allergies morphine Allergy (Severe, Verified 11/14/20 00:10) Anaphylaxis/ cardiac arrest Penicillins Allergy (Severe, Verified 11/14/20 00:10) Anaphylaxis/ cardiac arrest Home medications list reviewed: Yes Home Medications: Venlafaxine HCl [Venlafaxine HCl ER] 150 mg PO DAILY 10/30/18 Amlodipine [Norvasc*] 5 mg PO DAILY 11/13/20 Chlorthalidone 25 mg PO DAILY 11/13/20 Metoprolol Tartrate 50 mg PO DAILY 11/13/20 Aspirin Chewable [Aspirin Chewable*] 81 mg PO DAILY #30 tab.chew 11/16/20 Atorvastatin Calcium [Lipitor] 40 mg PO BEDTIME #30 tab 11/16/20 Ticagrelor [Brilinta*] 90 mg PO Q12HR #60 tablet 11/16/20 - Past Medical/Surgical History Diabetic: No -: Hypertension -: Chronic kidney disease, stage III -: Depression -: History of prostate cancer -: Coronary artery disease -: TURP -: Appendectomy -: Bilateral shoulder repair -: Right collarbone repair -: Coronary artery stent placement Psychosocial/ Personal History: Patient lives by himself. He is currently . He has 1 stepchild. - Family History Family History: Reviewed- Non-Contributory - Social History Smoking Status: Never smoker Alcohol use: No CD- Drugs: No Caffeine use: No Place of Residence: Home Review of Systems Musculoskeletal: Foot Pain Integumentary: As per HPI Physical Examination - Vital Signs Temperature: 98 F Blood Pressure: 136/74 Pulse: 61 Respirations: 17 Pulse Ox (%): 99 - Physical Exam General: Alert, In no apparent distress HEENT: Atraumatic, EOMI, Sclerae nonicteric Neck: Supple, 2+ carotid pulse no bruit Respiratory: Clear to auscultation bilaterally, Normal air movement Cardiovascular: Regular rate/rhythm, Normal S1 S2 Gastrointestinal: Normal bowel sounds, No tenderness Musculoskeletal: No tenderness Integumentary: Tenderness/swelling, Erythema, Warmth, Other (streaking left foot) Neurological: Normal speech, Normal affect - Studies Laboratory Data (last 24 hrs) 03/06/23 22:03: Sodium 134 L, Potassium 3.8, BUN 22 H, Creatinine 1.91 H, Glucose 105, Uric Acid 6.6, Total Bilirubin 1.7 H, AST 14 L, ALT 29, Alkaline Phosphatase 74 03/06/23 22:03: WBC 18.40 H, Hgb 14.6, Hct 42.5, Plt Count 227 Assessment and Plan - Problems (Diagnosis) (1) Cellulitis of left foot Current Visit: Yes Status: Acute (2) Sepsis Current Visit: Yes Status: Acute Qualifiers: Sepsis type: sepsis due to unspecified organism Sepsis acute organ dysf unction status: with acute organ dysfunction Severe sepsis acute organ dysfunction type: unspecified Severe sepsis shock status: without septic shock Qualified Code(s): A41.9 - Sepsis, unspecified organism; R65.20 - Severe sepsis without septic shock (3) CKD (chronic kidney disease) Current Visit: Yes Status: Acute Qualifiers: Chronic kidney disease stage: stage 3 (moderate) Chronic kidney disease stage 3 subtype: stage 3b (GFR 30-44) Qualified Code(s): N18.32 - Chronic kidney disease, stage 3b (4) Hypertension Current Visit: Yes Status: Chronic Qualifiers: Hypertension type: primary hypertension Qualified Code(s): I10 - Essential (primary) hypertension - Plan Patient is admitted for severe sepsis secondary to left foot cellulitus. Continue vancomyin and cefepime. Blood cultures obtained. Initial lactate 3. IV fluids given in ED. Repeat pending. Pain medications as needed. Trend CBC and CRP. Check lipid panel. Monitor and replete electrolytes per protocol. Reconcile and continue home medications. Lovenox for VTE prophylaxis. Full code. Discharge Plan: Home Plan to discharge in: Greater than 2 days - Advance Directives Does patient have a Living Will: No Does patient have a Durable POA for Healthcare: No - Code Status/Comfort Care Code Status Assessed: Yes Code Status: Full Code Physician Review: Patient Assessed, Agree with Above Assessment and Plan Critical Care: No Time Spent Managing Pts Care (In Minutes): 50
[2023-03-07] MEDS ORDERED: HYDROMORPHONE HCL 1 MG/ML INJ ONE (00:12)
[2023-03-07] MEDS ORDERED: NA CHLORIDE 0.9% 1,000 ML ONE ×2 (00:28→02:16)
[2023-03-07 00:57] LABS: Specific Gravity 1.024 (1.005-1.030); Urine Bacteria <20 /HPF (<20); Urine Bilirubin NEGATIVE (Negative); Urine Blood Negative (Negative); Urine Clarity Clear (Clear); Urine Color Yellow (Yellow); Urine Glucose NEGATIVE (Negative); Urine Mucus Slight /HPF (None Seen); Urine Protein 1+ (Negative); Urine RBC <5 /HPF (None Seen); Urine Urobilinogen Normal (Normal); Urine pH 5.5 (5.0-7.0)
[2023-03-07] MEDS ORDERED: VANCOMYCIN 1 GM in NA CHLORIDE 0.9% 250 ML IVPB SCH (01:01)
[2023-03-07] MEDS ORDERED: ACETAMINOPHEN 500 MG TAB PO PRN (01:01)
[2023-03-07] MEDS ORDERED: ONDANSETRON 4 MG/2 ML VIAL IV PRN (01:01)
[2023-03-07 01:11] VITALS: BMI 26.0
[2023-03-07] MEDS: NA CHLORIDE 0.9% 1,000 ML IV SCH ×4 (02:00→21:01)
[2023-03-07 04:26] LABS: Absolute Lymphocytes (CBC) 2.3 K/uL (0.7-4.9); Hematocrit 33.9 % (39.6-49.0); Lymphocytes % 20.5 % (15.3-44.8); MCV 89.3 fL (80-100); MPV 8.8 fL (7.6-11.3)
[2023-03-07 04:53] LABS: Magnesium 1.9 mg/dL (1.6-2.4); Phosphorus 2.7 mg/dL (2.5-4.9)
[2023-03-07] MEDS ORDERED: NA CHLORIDE 0.9% 100 ML ONE (08:23)
[2023-03-07] MEDS ORDERED: CEFEPIME 1 GM/VIAL ONE (08:23)
[2023-03-07] MEDS ORDERED: ENOXAPARIN 40 MG/0.4 ML SQ ONE (08:23)
[2023-03-07] MEDS ORDERED: MORPHINE 4 MG/ML SYR ONE (08:25)
[2023-03-07] MEDS ORDERED: ONDANSETRON 4 MG/2 ML VIAL ONE (08:25)
--- NOTE | 2023-03-07 08:27 | EKG ---
Test Date: 2023-03-06 Test Time: 22:56:03 [employer] Developer: SHINE MEASUREMENT RESULTS: Intervals: Rate: 56 W[place]: 188 QRSD: 68 QT: 418 QTc: 403 [place]: P: 72 W[place]: 188 QRS: -2 T: 56 INTERPRETIVE STATEMENTS: Sinus bradycardia with sinus arrhythmia Otherwise normal ECG Compared to ECG 12/09/2020 12:45:46 Sinus rhythm no longer present Left-axis deviation no longer present Myocardial infarct finding no longer present Electronically Signed On 03-07-23 08:27:17 CDT by Thang Solo
[2023-03-07] MEDS ORDERED: HYDROMORPHONE HCL 0.5 MG/0.5 ML INJ ONE ×2 (08:31→12:08)
[2023-03-07] MEDS: HYDROMORPHONE HCL 0.5 MG/0.5 ML INJ IV PRN ×4 (08:37→23:09)
[2023-03-07] MEDS: ENOXAPARIN 40 MG/0.4 ML SQ SCH (08:37)
[2023-03-07] MEDS: CEFEPIME 1 GM in NA CHLORIDE 0.9% 100 ML IV SCH ×2 (08:37→22:00)
[2023-03-07] MEDS ORDERED: VANCOMYCIN 1.5 GM in NA CHLORIDE 0.9% 500 ML IVPB SCH (09:00)
[2023-03-07] MEDS ORDERED: FENTANYL CITR 100 MCG/2 ML IV ONE (13:17)
--- NOTE | 2023-03-07 17:23 | P.PN ---
Subjective Date of Service: 03/07/23 Subjective: No new changes, No C/O voiced, Improving Review of Systems 10-point ROS is otherwise unremarkable Physical Examination - Vital Signs Temperature: 97.7 F Blood Pressure: 146/65 Pulse: 75 Respirations: 18 Pulse Ox (%): 98 - Physical Exam General: Alert, In no apparent distress, Oriented x3 Respiratory: Clear to auscultation bilaterally, Normal air movement Cardiovascular: Regular rate/rhythm, Normal S1 S2 Gastrointestinal: Normal bowel sounds, Soft and benign, Non-distended, No tenderness Musculoskeletal: Erythema, Tenderness, Warmth Integumentary: Tenderness/swelling, Erythema, Warmth Neurological: Sensation intact, Cranial nerves 3-12 intact - Studies Laboratory Data (last 24 hrs) 03/06/23 22:03: PT 12.5, INR 1.14, APTT 19.4 L 03/06/23 22:03: Sodium 134 L, Potassium 3.8, BUN 22 H, Creatinine 1.91 H, Glucose 105, Uric Acid 6.6, Total Bilirubin 1.7 H, AST 14 L, ALT 29, Alkaline Phosphatase 74 03/06/23 22:03: WBC 18.40 H, Hgb 14.6, Hct 42.5, Plt Count 227 Medications List Reviewed: Yes Assessment & Plan - Problems (Diagnosis) (1) Cellulitis of left foot Current Visit: Yes Status: Acute (2) Hypertension Current Visit: Yes Status: Chronic Qualifiers: Hypertension type: primary hypertension Qualified Code(s): I10 - Essential (primary) hypertension (3) Chronic renal failure, stage 3 (moderate) Onset Date: 10/31/18 Current Visit: No Status: Acute - Plan PLAN: 1. Continue with IV antibiotic 2. Continue with local wound care 3. MRI 4. Gentle IV hydration 5. Monitor CBC 6. Strict blood sugar monitoring 7. Pain control 8. GI and DVT prophylaxis - Advance Directives Does patient have a Living Will: No Does patient have a Durable POA for Healthcare: No - Code Status/Comfort Care Code Status: Full Code Physician Review: Patient Assessed, Agree with Above Assessment and Plan
[2023-03-07] MEDS ORDERED: HYDROCORTISONE SUC 100 MG INJ IV ONE (17:30)
[2023-03-07] MEDS: MUPIROCIN 2% OINT 22GM TUBE TOP SCH (22:07)
[2023-03-08] MEDS: NA CHLORIDE 0.9% 1,000 ML IV SCH (01:21)
[2023-03-08 02:11] VITALS: O2SAT 94
[2023-03-08 07:36] LABS: Absolute Lymphocytes (CBC) 1.7 K/uL (0.7-4.9); Hematocrit 34.2 % (39.6-49.0); Lymphocytes % 24.3 % (15.3-44.8); MCV 90.7 fL (80-100); MPV 8.8 fL (7.6-11.3); RBC Red Blood Cell Count 3.77 M/uL (4.33-5.43)
[2023-03-08] MEDS: HYDROMORPHONE HCL 0.5 MG/0.5 ML INJ IV PRN (07:48)
[2023-03-08 09:07] VITALS: BP 123/67; TEMP 97.7
[2023-03-08] MEDS: ENOXAPARIN 40 MG/0.4 ML SQ SCH (09:07)
[2023-03-08] MEDS: MUPIROCIN 2% OINT 22GM TUBE TOP SCH (09:09)
--- NOTE | 2023-03-08 09:10 | RAD REPORT ---
EXAM DESCRIPTION: MRI - Foot Left Wo Cont - 03/08/2023 8:33 am CLINICAL HISTORY: Foot pain and swelling COMPARISON: March 05, 2023 x-ray TECHNIQUE: Axial, sagittal and coronal magnetic resonance imaging forefoot, midfoot and portion of h indfoot. FINDINGS: 7 millimeter cyst within the talus. Diffuse edema dorsal aspect foot. No significant abnormal signal within the bones to suggest osteomyelitis. No fracture or dislocation. IMPRESSION: Cellulitis without evidence of osteomyelitis
[2023-03-08] MEDS: CEFEPIME 1 GM in NA CHLORIDE 0.9% 100 ML IV SCH (09:11)
[2023-03-08] MEDS ORDERED: HYDROMORPHONE HCL 1 MG/ML INJ IV PRN (13:45)
[2023-03-08] MEDS ORDERED: VANCOMYCIN 1.5 GM in NA CHLORIDE 0.9% 500 ML IVPB SCH (14:00)
== END 2023-03-08 14:05 | disposition home or self-care (01) | DRG 872 ==
LOC: ER 20:31 → ERHOLD 23:22 → 2ND 03-07 14:30
PROVIDERS: ADMIT Hospitalist; ATTEND Hospitalist
DX: A41.9 Sepsis, unspecified organism (principal); L03.116 Cellulitis of left lower limb; R65.20 Severe sepsis without septic shock; I12.9 Hypertensive chronic kidney disease with stage 1 through stage 4 chronic kidney disease, or unspecified chronic kidney disease; N18.32 Chronic kidney disease, stage 3b; I25.10 Atherosclerotic heart disease of native coronary artery without angina pectoris; F32.A Depression, unspecified; I25.2 Old myocardial infarction; Z79.82 Long term (current) use of aspirin; Z79.899 Other long term (current) drug therapy; Z88.0 Allergy status to penicillin; Z88.5 Allergy status to narcotic agent; Z95.5 Presence of coronary angioplasty implant and graft; Z85.46 Personal history of malignant neoplasm of prostate; Z90.79 Acquired absence of other genital organ(s)
CPT/HCPCS: 36415; 80048; 80053; 80061; 80202; 81001; 82947; 83036; 83605; 83735; 84100; 84550; 85025; 85610; 85730; 86140; 87040; 87205; 93005; 93926; 93971; 96365; 96366; 96375; 99285; J0692; J1170; J1650; J1720; J2405; J3010; J7030; J7040; J7050

== ENCOUNTER 2024-06-16 04:55 | Emergency (ER) | payer OTHER ==
--- NOTE | 2024-06-16 05:07 | EDPHYS ---
Physician Documentation [facility] Name: Jose C Hernandez Age: 83 yrs Sex: Male : 1940 Arrival Date: 06/16/2024 Time: 04:55 Bed 18 Private MD: ED Physician Alex Cunha HPI: 06/16 05:00 This 83 yrs old Male presents to ER via Unassigned with complaints of Arm sp4 Pain, Hand Swelling. 05:55 Patient presents with right wrist pain and swelling right hand pain and swelling sp4 associated with cat scratch which occurred 1 day ago. Historical: - Allergies: 05:00 Morphine (cardiac arrest); jw7 05:00 PENICILLINS (cardiac arrest); jw7 - PMHx: 05:00 75% Kidney failure; Cancer- Prostate; Cancer- Urinary Bladder; Depression; jw7 Hypertension; Leukemia; [place]; Myocardial infarction; - PSHx: 05:00 Stented artery; TURP; jw7 - Immunization history:: Adult Immunizations up to date, Client reports receiving the 2nd dose of the Covid vaccine, Pneumococcal vaccine is up to date, Flu vaccine is up to date. - Infectious Disease History:: Denies. - Social history:: Smoking status: Patient denies any tobacco usage or history of. Patient/guardian denies using alcohol, street drugs, IV drugs. - Family history:: not pertinent. ROS: 05:54 Constitutional: Negative for fever, chills, and weight loss, positive R hand pain sp4 05:54 All other systems are negative, Exam: 05:54 Constitutional: This is a well developed, well nourished patient who is awake, alert, sp4 and in no acute distress. Head/Face: Normocephalic, atraumatic. Eyes: Pupils equal round and reactive to light, extra-ocular motions intact. Lids and lashes normal. Conjunctiva and sclera are not injected. Cornea within normal limits. Periorbital areas with no swelling, redness, or edema. ENT: Nares patent. No nasal discharge, no septal abnormalities noted. Tympanic membranes are normal and external auditory canals are clear. Oropharynx with no redness, swelling, or masses, exudates, or evidence of obstruction, uvula midline. Mucous membranes moist. Neck: Trachea midline, no thyromegaly or masses palpated, and no cervical lymphadenopathy. Supple, full range of motion without nuchal rigidity, or vertebral point tenderness. Chest/axilla: Normal chest wall appearance and motion. Nontender with no deformity. No lesions are appreciated. Cardiovascular: Regular rate and rhythm with a normal S1 and S2. No gallops, murmurs, or rubs. Normal PMI, no JVD. No pulse deficits. Respiratory: Lungs have equal breath sounds bilaterally, clear to auscultation and percussion. No rales, rhonchi or wheezes noted. No increased work of breathing, no retractions or nasal flaring. Abdomen/GI: Soft, with normal bowel sounds. No distension or tympany. No guarding or rebound. No evidence of tenderness throughout. Back: No spinal tenderness. No costovertebral tenderness. Skin: Warm, dry with normal turgor. Normal color with no rashes, no lesions, and no evidence of cellulitis. MS/ Extremity: Pulses equal, no cyanosis. Neurovascular intact. Full, normal range of motion. Small amount of cellulitis to the dorsal Right wrist and hand , smal scratch geoffrey to R wrist Neuro: Awake and alert, GCS 15, oriented to person, place, time, and situation. Cranial nerves II-XII grossly intact. Motor strength 5/5 in all extremities. Sensory grossly intact. Psych: Awake, alert, with orientation to person, place and time. Behavior, mood, and affect are within normal limits Vital Signs: 05:00 BP 137 / 81; Pulse 88; Resp 16 S; Temp 97.7(O); Pulse Ox 97% on R/A; Weight 89.36 kg 7 (R); Height 5 ft. 11 in. (R); Pain 7/10; 05:00 Body Mass Index 27.48 (89.36 kg, 180.34 cm) [facility] 05:00 Pain Scale: Adult [facility] Parag Coma Score: 05:54 Eye Response: spontaneous(4). Motor Response: obeys commands(6). Verbal Response: sp4 oriented(5). Total: 15. MDM: 05:06 Patient medically screened. sp4 05:55 Differential diagnosis: dislocation, open fracture, contusion, abrasion, tendonitis. sp4 Data reviewed: vital signs, nurses notes, old medical records. ED course: Exam is consistent with right wrist cellulitis secondary to a scratch or a puncture wound to the right dorsal wrist. Administered Medications: 05:35 Drug: Rocephin (cefTRIAXone) IM 1 grams IM once Route: IM; Site: left ventrogluteal; jw7 05:54 Follow up: Response: No adverse reaction; Medication administered at discharge. jw7 05:35 Drug: Ibuprofen PO 800 mg PO once Route: PO; 7 :54 Follow up: Response: No adverse reaction; Medication administered at discharge. jw7 :35 Drug: Acetaminophen PO 1000 mg PO once Route: PO; jw7 :54 Follow up: Response: No adverse reaction; Medication administered at discharge. jw7 05:35 Drug: Trimethoprim-Sulfamethoxazole PO (160 mg-800 mg (DS) 1 tablet PO once Route: PO; 7 :54 Follow up: Response: No adverse reaction; Medication administered at discharge. jw7 05:35 Drug: Ondansetron PO 4 mg PO once Route: PO; 7 :54 Follow up: Response: No adverse reaction; Medication administered at discharge. jw7 Disposition Summary: 06/16/24 05:06 Discharge Ordered Notes: Location: Home sp4 Problem: new sp4 Symptoms: have improved sp4 Condition: Stable sp4 Diagnosis - Cellulitis of right upper limb sp4 - Acute Right hand and wrist cellulitis sp4 Followup: sp4 - With: Private Physician - When: 7 - 10 days - Reason: Recheck today's complaints Discharge Instructions: - Discharge Summary Sheet sp4 - Cellulitis, Adult, [id number] sp4 Forms: - Patient Portal Instructions sp4 Prescriptions: - cephalexin 500 mg Oral capsule - take 1 capsule ORAL route every 12 hours; 20 capsule; Refills: 0, Product sp4 Selection Permitted - Ibuprofen 600 mg Oral Tablet - take 1 tablet ORAL route every 6 hours As needed take with food; 30 tablet; sp4 Refills: 0, Product Selection Permitted - Bactrim DS 800-160 mg Oral Tablet - take 1 tablet ORAL route every 12 hours for 10 days; 20 tablet; Refills: 0, sp4 Product Selection Permitted Signatures: Anne Hdz RN RN jw7 Alex Cunha MD MD sp4
[2024-06-16] MEDS ORDERED: ACETAMINOPHEN 500 MG TAB ONE (05:20)
[2024-06-16] MEDS ORDERED: CEFTRIAXONE 1000 MG/VIAL ONE (05:20)
[2024-06-16] MEDS ORDERED: IBUPROFEN 400 MG TAB ONE (05:21)
[2024-06-16] MEDS ORDERED: SMZ./TMP. 800/160 MG TABLET ONE (05:21)
[2024-06-16] MEDS ORDERED: ONDANSETRON 4 MG (ODT) TAB ONE (05:21)
[2024-06-16] MEDS ORDERED: LIDOCAINE 1% MPF 2 ML AMPULE ONE (05:24)
--- NOTE | 2024-06-16 05:55 | ER ---
Nurse's Notes [facility] Name: Jose C Hernandez Age: 83 yrs Sex: Male : 1940 Arrival Date: 06/16/2024 Time: 04:55 Bed 18 Private MD: Diagnosis: Cellulitis of right upper limb;Acute Right hand and wrist cellulitis Presentation: 06/16 05:00 Chief complaint: Patient states: I got scratched by my cat on my right wrist and now jw7 it's swollen and painful. Coronavirus screen: At this time, the client does not indicate any symptoms associated with coronavirus-19. Ebola Screen: No symptoms or risks identified at this time. 05:00 Method Of Arrival: Ambulatory jw7 05:00 Initial Sepsis Screen: Does the patient meet any 2 criteria? No. Patient's initial jw7 sepsis screen is negative. Does the patient have a suspected source of infection? No. Patient's initial sepsis screen is negative. Risk Assessment: Do you want to hurt yourself or someone else? Patient reports no desire to harm self or others. Onset of symptoms was June 15, 2024. 05:00 Acuity: [place] 5 jw7 Triage Assessment: 05:00 General: Appears in no apparent distress. uncomfortable, Behavior is calm, cooperative, jw7 appropriate for age. Pain: Complains of pain in right wrist Pain does not radiate. Pain currently is 7 out of 10 on a pain scale. Quality of pain is described as sharp, throbbing, Pain began suddenly, Is continuous. EENT: No deficits noted. No signs and/or symptoms were reported regarding the EENT system. Neuro: Level of Consciousness is awake, alert, obeys commands, Oriented to person, place, time, situation, Appropriate for age. Respiratory:. Derm: Skin is healthy with good turgor, Skin is dry, Skin is normal, Skin temperature is warm Wound noted right wrist Wound is scratch with redness and edema. Musculoskeletal: Circulation, motion, and sensation intact. Range of motion: limited in right wrist Swelling present in right wrist. Historical: - Allergies: 05:00 Morphine (cardiac arrest); jw7 05:00 PENICILLINS (cardiac arrest); jw7 - PMHx: 05:00 75% Kidney failure; Cancer- Prostate; Cancer- Urinary Bladder; Depression; jw7 Hypertension; Leukemia; NH; Myocardial infarction; - PSHx: 05:00 Stented artery; TURP; jw7 - Immunization history:: Adult Immunizations up to date, Client reports receiving the 2nd dose of the Covid vaccine, Pneumococcal vaccine is up to date, Flu vaccine is up to date. - Infectious Disease History:: Denies. - Social history:: Smoking status: Patient denies any tobacco usage or history of. Patient/guardian denies using alcohol, street drugs, IV drugs. - Family history:: not pertinent. Screenin:05 [facility] ED Fall Risk Assessment (Adult) History of falling in the last 3 months, jw7 including since admission No falls in past 3 months (0 pts) Confusion or Disorientation No (0 pts) Intoxicated or Sedated No (0 pts) Impaired Gait No (0 pts) Mobility Assist Device Used No (0 pt) Altered Elimination No (0 pt) Score/Fall Risk Level 0 - 2 = Low Risk Oriented to surroundings, Maintained a safe environment, Educated pt \T\ family on fall prevention, incl call for assistance when getting out of bed. Abuse screen: Denies threats or abuse. Denies injuries from another. Nutritional screening: No deficits noted. Tuberculosis screening: No symptoms or risk factors identified. Assessment: 05:05 General: Appears in no apparent distress. uncomfortable, Behavior is calm, cooperative, jw7 appropriate for age. 05:05 Pain: Complains of pain in right wrist Pain does not radiate. Pain currently is 7 out jw7 of 10 on a pain scale. Quality of pain is described as sharp, throbbing, Pain began suddenly, Is continuous. Neuro: Level of Consciousness is awake, alert, obeys commands, Oriented to person, place, time, situation, Appropriate for age. Cardiovascular: Heart tones S1 S2 present Capillary refill < 3 seconds Patient's skin is warm and dry. Respiratory: Airway is patent Trachea midline Respiratory effort is even, unlabored, Respiratory pattern is regular, symmetrical. GI: Abdomen is flat, non-distended, Bowel sounds present X 4 quads. : No deficits noted. No signs and/or symptoms were reported regarding the genitourinary system. EENT: No deficits noted. No signs and/or symptoms were reported regarding the EENT system. Derm: Skin is healthy with good turgor, Skin is dry, Skin is normal, Skin temperature is warm Wound noted right wrist. Musculoskeletal: Circulation, motion, and sensation intact. Range of motion: intact in all extremities. 05:45 Reassessment: Patient appears in no apparent distress at this time. No changes from jw7 previously documented assessment. Patient and/or family updated on plan of care and expected duration. Pain level reassessed. Patient is alert, oriented x 3, equal unlabored respirations, skin warm/dry/pink. Vital Signs: 05:00 BP 137 / 81; Pulse 88; Resp 16 S; Temp 97.7(O); Pulse Ox 97% on R/A; Weight 89.36 kg jw7 (R); Height 5 ft. 11 in. (R); Pain 7/10; 05:00 Body Mass Index 27.48 (89.36 kg, 180.34 cm) jw7 05:00 Pain Scale: Adult jw7 Parag Coma Score: 05:54 Eye Response: spontaneous(4). Motor Response: obeys commands(6). Verbal Response: sp4 oriented(5). Total: 15. ED Course: 04:59 Patient arrived in ED. gm2 05:00 Aelx Cunha MD is Attending Physician. sp4 05:00 Arm band placed on. jw7 05:05 Patient has correct armband on for positive identification. Bed in low position. Call jw7 light in reach. Provided Education on: use of call light. 05:17 Anne Hdz RN is Primary Nurse. jw7 05:46 Triage completed. jw7 05:52 No provider procedures requiring assistance completed. Patient did not have IV access jw7 during this emergency room visit. Administered Medications: 05:35 Drug: Rocephin (cefTRIAXone) IM 1 grams IM once Route: IM; Site: left ventrogluteal; jw7 05:54 Follow up: Response: No adverse reaction; Medication administered at discharge. jw7 05:35 Drug: Ibuprofen PO 800 mg PO once Route: PO; jw7 05:54 Follow up: Response: No adverse reaction; Medication administered at discharge. jw7 05:35 Drug: Acetaminophen PO 1000 mg PO once Route: PO; jw7 05:54 Follow up: Response: No adverse reaction; Medication administered at discharge. jw7 05:35 Drug: Trimethoprim-Sulfamethoxazole PO (160 mg-800 mg (DS) 1 tablet PO once Route: PO; jw7 05:54 Follow up: Response: No adverse reaction; Medication administered at discharge. jw7 05:35 Drug: Ondansetron PO 4 mg PO once Route: PO; jw7 05:54 Follow up: Response: No adverse reaction; Medication administered at discharge. jw7 Medication: 05:05 VIS not applicable for this client. jw7 Outcome: 05:06 Discharge ordered by . soha 05:52 Discharged to home ambulatory, jw 05:52 Condition: stable 05:52 Discharge instructions given to patient, Instructed on discharge instructions, follow up and referral plans. medication usage, Demonstrated understanding of instructions, follow-up care, medications, Prescriptions given X 3, 05:55 Patient left the ED. jw7 Signatures: Anne Hdz RN RN jw7 Alex Cunha MD MD sp4 Jackelyn Moya 2
[2024-06-16 05:59] VITALS: BP 137/81; TEMP 97.7; O2SAT 97
== END 2024-06-16 05:55 | disposition home or self-care (01) ==
LOC: ER 04:55
DX: L03.113 Cellulitis of right upper limb (principal)
CPT/HCPCS: Q0162; J0696; 96372; 99284